=== PATIENT | female | born 1965 | race Two or more races ===

== ENCOUNTER 2021-05-27 10:14 | Inpatient (IN) | payer OTHER ==
[2021-05-27] MEDS ORDERED: SODIUM CHLORIDE 0.9% 1,000 ML IV STA (10:37)
[2021-05-27] MEDS ORDERED: MORPHINE SULFATE 4 MG/ML SYRINGE IV STA (10:37)
[2021-05-27 11:29] LABS: Basophils # (A) 0.1 k/uL (0-0.2); Basophils % (A) 1 %; Eosinophils % (A) 0 %; HGB 16.4 gm/dL (11.4-16.0); Lymphocytes # (A) 1.2 k/uL (1.0-4.8); Lymphocytes % (A) 16 %; MCH 32.8 pg (25.0-35.0); MCHC 33.5 g/dL (31.0-37.0); MCV 97.9 fL (80.0-100.0); Mean Platelet Volume 6.5; Monocytes # (A) 0.4 k/uL (0-1.0); Monocytes % (A) 5 %; Neutrophils # (A) 5.5 k/uL (1.3-7.7); Neutrophils % (A) 76 %; Platelet Count 254 k/uL (150-450); RDW 12.9 % (11.5-15.5); WBC 7.2 k/uL (3.8-10.6)
[2021-05-27 11:34] LABS: Partial Thromboplastin Time 23.8 sec (22.0-30.0); Prothrombin Time 10.7 sec (9.0-12.0)
[2021-05-27 11:36] LABS: ALT 22 U/L (4-34); AST 27 U/L (14-36); African American GFR (CKD) >90 (>60 ml/min/1.73 sqM); Albumin 5.3 g/dL (3.5-5.0); Alkaline Phosphatase 84 U/L (38-126); Amylase 107 U/L (30-110); Anion Gap 13 mmol/L; Blood Urea Nitrogen 12 mg/dL (7-17); Calcium 10.4 mg/dL (8.4-10.2); Carbon Dioxide 24 mmol/L (22-30); Chloride 95 mmol/L (98-107); Glucose 82 mg/dL (74-99); Lipase 89 U/L (23-300); Non-African American GFR(CKD) >90 (>60 ml/min/1.73 sqM); Potassium 3.8 mmol/L (3.5-5.1); Sodium 132 mmol/L (137-145); Total Bilirubin 1.2 mg/dL (0.2-1.3); Total Protein 8.1 g/dL (6.3-8.2)
[2021-05-27 11:53] LABS: Appearance,Urine Clear (Clear); Bacteria,Urine Rare /hpf; Bilirubin,Urine Negative (Negative); Blood,Urine Small (Negative); Color,Urine Light Yellow; Glucose,Urine (UA) Negative (Negative); Ketones,Urine 3+ (Negative); Leukocyte Esterase,Urine Negative (Negative); Mucus,Urine Rare /hpf; Nitrite,Urine Negative (Negative); Protein,Urine Negative (Negative); RBC,Urine 2 /hpf (0-5); Specific Gravity,Urine 1.009 (1.001-1.035); Urobilinogen,Urine <2.0 mg/dL (<2.0); WBC,Urine 2 /hpf (0-5)
--- NOTE | 2021-05-27 12:16 | ED ---
General Adult HPI - General Chief complaint: Abdominal Pain Stated complaint: abd pain Time Seen by Provider: 05/27/21 10:22 Source: patient, RN notes reviewed, old records reviewed Mode of arrival: ambulatory Limitations: no limitations - History of Present Illness Initial comments: 55-year-old female presenting for evaluation of lower abdominal pain. This been ongoing for several weeks. She states she has had abdominal pain in the past this was related to pancreatitis and this was many years ago. She's been seen 3 times at outside facilities and reports that they have not found any acute abnormality in that she has been discharged home. She she was recommended to come to the emergency department today by her primary care physician. She de nies fever. She has had some nausea without significant vomiting. The pain is bilateral lower quadrants. No dysuria or hematuria. - Related Data Home Medications Medication Instructions Recorded Confirmed Rosuvastatin [Crestor] 20 mg PO DAILY 05/27/21 05/27/21 Allergies Allergy/AdvReac Type Severity Reaction Status Date / Time acetaminophen [From Tylenol] Allergy Rash/Hives Verified 05/27/21 10:46 Penicillins Allergy hives/GRISELDA Verified 05/27/21 10:46 Review of Systems ROS Statement: Those systems with pertinent positive or pertinent negative responses have been documented in the HPI. ROS Other: All systems not noted in ROS Statement are negative. Past Medical History Past Medical History: No Reported History History of Any Multi-Drug Resistant Organisms: None Reported Past Surgical History: Cholecystectomy Additional Past Surgical History / Comment(s): Back Past Psychological History: No Psychological Hx Reported Smoking Status: Former smoker Past Alcohol Use History: None Reported Past Drug Use History: Marijuana General Exam Limitations: no limitations General appearance: alert, in no apparent distress Head exam: Present: atraumatic, normocephalic Eye exam: Present: normal appearance, PERRL ENT exam: Present: normal exam Neck exam: Present: normal inspection. Absent: tenderness, meningismus Respiratory exam: Present: normal lung sounds bilaterally. Absent: respiratory distress, wheezes Cardiovascular Exam: Present: regular rate, normal rhythm GI/Abdominal exam: Present: soft. Absent: distended, tenderness, guarding Extremities exam: Present: normal inspection, normal capillary refill. Absent: pedal edema Neurological exam: Present: alert, oriented X3, CN II-XII intact. Absent: motor sensory deficit Psychiatric exam: Present: anxious Skin exam: Present: warm, dry, intact. Absent: cyanosis, diaphoretic Course Vital Signs 05/27/21 10:15 Temperature 97.6 F Pulse Rate 85 Respiratory 24 Rate Blood Pressure 142/81 O2 Sat by Pulse 97 Oximetry Medical Decision Making - Medical Decision Making 55-year-old female presents for reevaluation of lower abdominal pain. Pain is severe. History is limited but she has been seen at 3 other emergency d epartments and has had workup. These records are requested. She hasn't lower abdominal tenderness bilaterally. Vital signs are stable. She has relatively normal labs including normal white blood cell count stable hemoglobin. CT is performed which does show possibility of some colitis. No skull other significant acute findings to account for the patient's pain. She receives multiple doses of medication the emergency department and still has significant pain and nausea. She will be admitted for further evaluation treatment, symptom control. Gastroenterology placed on consult and they have been notified of consult. - Lab Data Result diagrams: 05/27/21 10:42 05/27/21 10:42 Lab Results 05/27/21 05/27/21 05/27/21 Range/Units 10:42 10:42 10:42 WBC 7.2 (3.8-10.6) k/uL RBC 5.00 (3.80-5.40) m/uL Hgb 16.4 H (11.4-16.0) gm/dL Hct 49.0 H (34.0-46.0) % MCV 97.9 (80.0-100.0) fL MCH 32.8 (25.0-35.0) pg MCHC 33.5 (31.0-37.0) g/dL RDW 12.9 (11.5-15.5) % Plt Count 254 (150-450) k/uL MPV 6.5 Neutrophils % 76 % Lymphocytes % 16 % Monocytes % 5 % Eosinophils % 0 % Basophils % 1 % Neutrophils # 5.5 (1.3-7.7) k/uL Lymphocytes # 1.2 (1.0-4.8) k/uL Monocytes # 0.4 (0-1.0) k/uL Eosinophils # 0.0 (0-0.7) k/uL Basophils # 0.1 (0-0.2) k/uL PT 10.7 (9.0-12.0) sec INR 1.0 (<1.2) APTT 23.8 (22.0-30.0) sec Sodium (137-145) mmol/L Potassium (3.5-5.1) mmol/L Chloride (98-107) mmol/L Carbon Dioxide (22-30) mmol/L Anion Gap mmol/L BUN (7-17) mg/dL Creatinine (0.52-1.04) mg/dL Est GFR (CKD-EPI)AfAm (>60 ml/min/1.73 sqM) Est GFR (CKD-EPI)NonAf (>60 ml/min/1.73 sqM) Glucose (74-99) mg/dL Plasma Lactic Acid Gamaliel (0.7-2.0) mmol/L Calcium (8.4-10.2) mg/dL Total Bilirubin (0.2-1.3) mg/dL AST (14-36) U/L ALT (4-34) U/L Alkaline Phosphatase (38-126) U/L Total Protein (6.3-8.2) g/dL Albumin (3.5-5.0) g/dL Amylase (30-110) U/L Lipase (23-300) U/L Urine Color Light Yellow Urine Appearance Clear (Clear) Urine pH 6.0 (5.0-8.0) Ur Specific [place] 1.009 (1.001-1.035) Urine Protein Negative (Negative) Urine Glucose (UA) Negative (Negative) Urine Ketones 3+ H (Negative) Urine Blood Small H (Negative) Urine Nitrite Negative (Negative) Urine Bilirubin Negative (Negative) Urine Urobilinogen <2.0 (<2.0) mg/dL Ur Leukocyte Esterase Negative (Negative) Urine RBC 2 (0-5) /hpf Urine WBC 2 (0-5) /hpf Urine Bacteria Rare H (None) /hpf Urine Mucus Rare H (None) /hpf 05/27/21 05/27/21 Range/Units 10:42 10:42 WBC (3.8-10.6) k/uL RBC (3.80-5.40) m/uL Hgb (11.4-16.0) gm/dL Hct (34.0-46.0) % MCV (80.0-100.0) fL MCH (25.0-35.0) pg MCHC (31.0-37.0) g/dL RDW (11.5-15.5) % Plt Count (150-450) k/uL MPV Neutrophils % % Lymphocytes % % Monocytes % % Eosinophils % % Basophils % % Neutrophils # (1.3-7.7) k/uL Lymphocytes # (1.0-4.8) k/uL Monocytes # (0-1.0) k/uL Eosinophils # (0-0.7) k/uL Basophils # (0-0.2) k/uL PT (9.0-12.0) sec INR (<1.2) APTT (22.0-30.0) sec Sodium 132 L (137-145) mmol/L Potassium 3.8 (3.5-5.1) mmol/L Chloride 95 L (98-107) mmol/L Carbon Dioxide 24 (22-30) mmol/L Anion Gap 13 mmol/L BUN 12 (7-17) mg/dL Creatinine 0.71 (0.52-1.04) mg/dL Est GFR (CKD-EPI)AfAm >90 (>60 ml/min/1.73 sqM) Est GFR (CKD-EPI)NonAf >90 (>60 ml/min/1.73 sqM) Glucose 82 (74-99) mg/dL Plasma Lactic Acid Gamaliel 1.0 (0.7-2.0) mmol/L Calcium 10.4 H (8.4-10.2) mg/dL Total Bilirubin 1.2 (0.2-1.3) mg/dL AST 27 (14-36) U/L ALT 22 (4-34) U/L Alkaline Phosphatase 84 (38-126) U/L Total Protein 8.1 (6.3-8.2) g/dL Albumin 5.3 H (3.5-5.0) g/dL Amylase 107 (30-110) U/L Lipase 89 (23-300) U/L Urine Color Urine Appearance (Clear) Urine pH (5.0-8.0) Ur Specific [place] (1.001-1.035) Urine Protein (Negative) Urine Glucose (UA) (Negative) Urine Ketones (Negative) Urine Blood (Negative) Urine Nitrite (Negative) Urine Bilirubin (Negative) Urine Urobilinogen (<2.0) mg/dL Ur Leukocyte Esterase (Negative) Urine RBC (0-5) /hpf Urine WBC (0-5) /hpf Urine Bacteria (None) /hpf Urine Mucus (None) /hpf Disposition Clinical Impression: Abdominal pain, Intractable abdominal pain Disposition: ADMITTED IP TO THIS HOSP Condition: Stable Is patient prescribed a controlled substance at d/c from ED?: No Referrals: Sanya Lopez MD [Primary Care Provider] - 1-2 days Decision to Admit Reason: Admit from EC Decision Date: 05/27/21 Decision Time: 13:26
--- NOTE | 2021-05-27 12:16 | CT ---
EXAMINATION TYPE: CT abdomen pelvis w con DATE OF EXAM: 05/27/2021 COMPARISON: None HISTORY: LEFT SIDE ABD PAIN X3 WEEKS, CT DLP: 402.7 mGycm Automated exposure control for dose reduction was used. TECHNIQUE: Helical acquisition of images from the lung bases through the pelvis have been completed. CONTRAST: Performed without Oral Contrast and with IV Contrast, patient injected with 90 mL of Isovue 300. FINDINGS: LUNG BASES: No significant abnormality is appreciated. AORTA: No significant abnormality is appreciated. LIVER/GB: Dilated intra and extrahepatic biliary ducts could be due to postcholecystectomy change. PANCREAS: No significant abnormality is seen. SPLEEN: No significant abnormality is seen. ADRENALS: No significant abnormality is seen. KIDNEYS: No significant abnormality is seen. REPRODUCTIVE ORGANS: Right ovarian cyst measures 2.2 cm, uterus to be within normal limits BOWEL: Question some colonic wall thickening, axial image 54 and 55 at the rectosigmoid, findings co uld be due to lack of distention. Fluid-filled loops of small bowel are present. FREE AIR: No Free Air visible. ASCITES: None visible. PELVIC ADENOPATHY: None visualized. RETROPERITONEAL ADENOPATHY: No Retroperitoneal Adenopathy visible. URINARY BLADDER: No significant abnormality is seen. OSSEOUS STRUCTURES: Postop change, Berger nhi is present, there is an underlying scoliosis, conor fact is present due to patient's mental nhi. Degenerative disc changes present at L4-5, there is disc height loss, vacuum phenomenon, spurring, posterior disc bulge. Facet arthropathy changes present in the lower lumbar spine IMPRESSION: DIFFICULT TO EXCLUDE COLITIS, ENTERITIS. POSTOP CHANGE. ADDITIONAL FINDINGS ABOVE.
[2021-05-27] MEDS ORDERED: HYDROmorphone 1 MG/ML 1 ML SYRINGE IVP STA (12:41)
[2021-05-27] MEDS ORDERED: MORPHINE SULFATE 4 MG/ML SYRINGE IV PRN (13:16)
[2021-05-27] MEDS ORDERED: HYDROmorphone 1 MG/ML 1 ML SYRINGE IVP PRN (13:16)
[2021-05-27] MEDS ORDERED: NALOXONE 0.4 MG/ML 1 ML VIAL IV PRN (13:16)
[2021-05-27] MEDS ORDERED: ONDANSETRON 4 MG/2 ML VIAL IVP STA (13:16)
[2021-05-27] MEDS ORDERED: KETOROLAC 15 MG/ML 1 ML VIAL IVP STA (13:16)
[2021-05-27] MEDS ORDERED: HYDROmorphone 0.5 MG/0.5 ML SYRINGE IVP PRN (13:16)
[2021-05-27] MEDS: SODIUM CHLORIDE 0.9% 1,000 ML IV SCH (14:23)
--- NOTE | 2021-05-27 15:22 | P.CONS ---
History of Present Illness - Reason for Consult Consult date: 05/27/21 intractable abdominal pain Requesting physician: Stone Austin - Chief Complaint abdominal pain - History of Present Illness Subjective 55-year-old female who presented to the emergency room with complaints of razor like pulsating pain in her lower abdomen that she states is constant but gets worse at times. She states the pain wraps around her back and it is numb along her back and stomach and down her legs. States the pain shoots down her legs. She has a history of scoliosis. She states she has been seen in [facility] times recently. Patient has no reported past medical history. She has a history of cholecystectomy. She does state that she did have a history of pancreatitis any years ago which she believes they stated was related to alcohol however she states that she was never a big drinker and only drinks maybe a sixpack a week. She had a CT of the abdomen that showed questionable colonic wall thickening at the rectosigmoid, could be due to lack of distention. Fluid-filled loops of small bowel are present. Difficult to exclude colitis, enteritis. Postop change. Patient states bowel movements have been somewhat irregular as she is not eaten anything in the last 3 weeks. She states that she did have some constipation was given some MiraLAX and she did have a couple bowel movements after that. She denies any fevers or chills. Review of Systems REVIEW OF SYSTEMS: CARDIOPULMONARY: No chest pain or shortness of breath. Gastrointestinal: Low abdominal pain/pelvic pain which she states it feels like razor blades and pulsating, with numbness and wraps around her back.. No nausea or vomiting. No hematemesis, coffee-ground emesis. No rectal bleeding, or melena. GENITOURINARY: No dysuria or hematuria. MUSCULOSKELETAL: Reports normal range of motion. Pain in lower back and shootin g down her legs. Reports as a numbness feeling and burning sensation along her abdomen and back. SKIN: No rashes. No jaundice. ENDOCRINE: No chills, fevers. No excessive weight gain or loss. No polydipsia or polyuria. PSYCHIATRIC: Unremarkable. NEUROLOGY: No change in mental status. Denies dizziness, headache. ENT: Vision unremarkable. CONSTITUTIONAL: No recent weight loss. No fever, chills, night sweats. Past Medical History Past Medical History: No Reported History History of Any Multi-Drug Resistant Organisms: None Reported Past Surgical History: Cholecystectomy Additional Past Surgical History / Comment(s): Back Past Psychological History: No Psychological Hx Reported Smoking Status: Former smoker Past Alcohol Use History: None Reported Past Drug Use History: Marijuana Medications and Allergies Home Medications Medication Instructions Recorded Confirmed Type Rosuvastatin [Crestor] 20 mg PO DAILY 05/27/21 05/27/21 History Allergies Allergy/AdvReac Type Severity Reaction Status Date / Time acetaminophen [From Tylenol] Allergy Rash/Hives Verified 05/27/21 10:46 Penicillins Allergy hives/GRISELDA Verified 05/27/21 10:46 Physical Exam Vitals: Vital Signs Temp Pulse Resp BP Pulse Ox 05/27/21 10:15 97.6 F 85 24 142/81 97 Intake and Output 05/26/21 05/27/21 05/27/21 22:59 06:59 14:59 Other: Weight 40.823 kg General appearance: The patient is alert, oriented, appears in no acute distress. HET: Head is normocephalic and atraumatic. Conjunctiva pink. Sclera anicteric. Neck: Supple without lymphadenopathy. Trachea midline. Heart: S1 S2. Regular rate and rhythm. Lungs: Clear to auscultation. Abdomen: Soft, thin, tenderness in the lower abdomen/pelvic region, nondistended with bowel sounds. No guarding or rigidity. Skin: No rashes. No jaundice. Extremities: Normal skin color and turgor. No pedal edema. Neurological: No focal deficits. Alert and oriented x3. Results CBC & Chem 7: 05/27/21 10:42 05/27/21 10:42 Labs: Abnormal Lab Results - Last 24 Hours (Table) 05/27/21 05/27/21 05/27/21 Range/Units 10:42 10:42 10:42 Hgb 16.4 H (11.4-16.0) gm/dL Hct 49.0 H (34.0-46.0) % Sodium 132 L (137-145) mmol/L Chloride 95 L (98-107) mmol/L Calcium 10.4 H (8.4-10.2) mg/dL Albumin 5.3 H (3.5-5.0) g/dL Urine Ketones 3+ H (Negative) Urine Blood Small H (Negative) Urine Bacteria Rare H (None) /hpf Urine Mucus Rare H (None) /hpf CT scan - abdomen: report reviewed (Difficult to exclude colitis, enteritis, postop change. Berger hni present underlying scoliosis. Degenerative disc changes present L4 to 5, there is disc height loss, vacuum phenomenon, spurring, posterior disc bulge. Facet arthropathic the changes present in the lower lumbar spine.) Assessment and Plan (1) Abdominal pain Narrative/Plan: Gastroenterology was asked to see this 55-year-old female who had presented with complaints of abdominal pain. Patient states she has this lower abdominal pelvic pain that is like razor blades that are pulsating and wrapping around to her back which then goes down her leg. She also describes it as a burning sensation and numbness feeling. She denies any nausea or vomiting related to the pain. She states that she has not had much of an appetite and hasn't ate much in the last 2-3 weeks due to the pain. She has been seen at 3 other emergency rooms in [place] in [place] and has been sent home without any p ain medication. Patient has no previous significant past medical history other than a history of pancreatitis several years ago and likely related to alcohol she states. This pain does not appear to be gastrointestinal in nature. Pain is more likely to be related to her back, spasms, possible underlying etiology as seen in the CT report. No plans at this time for any further GI workup. This was discussed with primary care medicine team, recommend follow-up on back pain Current Visit: Yes Status: Acute Code(s): R10.9 - UNSPECIFIED ABDOMINAL PAIN SNOMED Code(s): 24958362 (2) Degenerative disc disease, lumbar Current Visit: Yes Status: Acute Code(s): M51.36 - OTHER INTERVERTEBRAL DISC DEGENERATION, LUMBAR REGION SNOMED Code(s): 18065613 Plan: 1. Continue symptomatic and supportive care 2. No plans on any endoscopic evaluation 3. Recommend orthopedic back surgeon to evaluate patient Thank you for this consultation, we will continue to follow. Dr. Milind Schaffer I agree with the dictator's note, documented as a scribe by Bessy Gong.
[2021-05-27] MEDS ORDERED: NAPROXEN 250 MG TAB PO STA (15:31)
[2021-05-27] MEDS ORDERED: methylPREDNISolone SOD SUCCI 125 MG/2 ML VIAL IV STA (15:38)
[2021-05-27] MEDS ORDERED: LACTULOSE 20 GM/30 ML CUP PO PRN (15:40)
[2021-05-27] MEDS ORDERED: MELATONIN 3 MG TABLET PO PRN (15:40)
[2021-05-27] MEDS ORDERED: CALCIUM CARBONATE 500 MG CHEWABLE PO PRN (15:40)
[2021-05-27] MEDS: BACLOFEN 10 MG TAB PO SCH ×2 (15:43→19:56)
[2021-05-27] MEDS: ACETAMINOPHEN TAB 325 MG TAB PO SCH ×2 (15:43→22:24)
[2021-05-27] MEDS: ENOXAPARIN 40 MG/0.4 ML SYRINGE SQ SCH (16:23)
--- NOTE | 2021-05-27 16:57 | XR ---
EXAMINATION TYPE: XR lumbosacral spine min 4V DATE OF EXAM: 05/27/2021 COMPARISON: NONE HISTORY: Back pain TECHNIQUE: 5 views FINDINGS: There is paraspinal nhi stabilizing the thoracic spine. The nhi extends down to L3 level. T here is a mild lumbar levoscoliosis. There is degenerative disc space narrowing and vacuum disc at L4 -5 and L5-S1. There is no compression fracture. Sacroiliac joints are intact. There is clips from cho lecystectomy. There is pulmonary hyperinflation and flattening of the diaphragm. IMPRESSION: Previous surgery. Spondylotic changes in the lower lumbar spine. No fracture seen.
--- NOTE | 2021-05-27 16:58 | CT ---
EXAMINATION TYPE: CT lumbar spine wo con DATE OF EXAM: 05/27/2021 COMPARISON: None HISTORY: 55-year-old female acute on chronic low back pain with radiculopathy TECHNIQUE: Contiguous axial scanning of the lumbar spine without IV contrast. Coronal and sagittal re constructions performed. CT DLP: 363.3 mGycm Automated exposure control for dose reduction was used. FINDINGS: There is a single vertical stabilization elizabeth which comes down from the thoracic spine on the left wit h a laminar hook at the midline L3. Lateral osseous fusion changes are demonstrated along with variab le laminectomies visualized lower thoracic and upper to mid lumbar spine. There is bony encasement of the vertical stabilization elizabeth noted. There is levoconvex scoliosis with prominent rightward truncal shift. Associated severe degenerative disc disease specially towards the right at L4-L5 along with advanced hypertrophic facet arthropathy mid to lower lumbar spine. At L4-L5, there is some ligamentum flavum thickening with facet arthropathy and disc bulge. Changes r esult in mild overall spinal canal stenosis. Moderate right neuroforaminal stenosis. At L5-S1, smaller disc bulge and ligamentum flavum thickening. Hypertrophic facet arthropathy. Change s result in mild bilateral neuroforaminal stenosis. Abdomen and pelvis reported separately. IMPRESSION: 1. SINGLE VERTICAL STABILIZATION ELIZABETH WHICH COMES DOWN FROM THE THORACIC SPINE ON THE LEFT WITH A LAMI JESSIE HOOK AT THE MIDLINE L3 LEVEL. THERE IS LATERAL OSSEOUS FUSION CHANGES ALONG WITH VARIABLE LAMINEC TOMIES UTILIZED IN THE LOWER THORACIC AND UPPER TO MID LUMBAR SPINE. BONY ENCASEMENT OF THE VISUALIZE D PORTION OF THE VERTICAL STABILIZATION RODS. 2. LEVOCONVEX SCOLIOSIS BELOW THE THORACOLUMBAR FUSION AND ASSOCIATED SEVERE DEGENERATIVE DISC DISEAS E L4-L5. 3. ADDITIONAL HYPERTROPHIC FACET ARTHROPATHY MID TO LOWER LUMBAR SPINE. 4. CHANGES INCLUDING BULGING DISC AND LIGAMENTUM FLAVUM THICKENING RESULT IN MILD OVERALL SPINAL BETH L STENOSIS AT L4-L5 WITH MODERATE RIGHT NEUROFORAMINAL STENOSIS. 5. MILD BILATERAL NEUROFORAMINAL STENOSIS AT L5-S1. 6. ABDOMEN AND PELVIS REPORTED SEPARATELY.
--- NOTE | 2021-05-27 18:01 | P.HPIM ---
History of Present Illness H&P Date: 05/27/21 Chief Complaint: Back and abdominal pain This is a very pleasant 55-year-old patient of Dr. Lopez. Patient at the age of 12 for severe scoliosis had surgery done in [place] and also placed what she described from her thoracic to lumbar spine. Over the last 2 years she's had pain on and off. And has seen different physicians. For her back. Through her family doctor. She has been prescribed pain medications. For last 2 weeks patient denies having increasing pain in the lower back and also patient describes in the abdominal wall. She finds the abdominal wall to be very sensitive to touch. She was having a bowel movement every day up to 2 weeks ago. Now she is not eating. Because of pain and has constipation. No nausea vomiting. She also feeling some numbness in the legs. Also having some more trouble walking. Having increasing trouble rolling about in bed. Back pain is much worse with movements. She's been to a local ER apparently to 3 times-4 lower abdominal pain. She does seem that the abdominal wall is sensitive to touch. She is also describing shooting pain from the lower back up the spine. She is quite a bit of discomfort. Because of concerns for side effects including constipation and has been avoiding pain medications. Except for marijuana Review of systems: GEN.: Tired EYES: None HEENT: None NECK: None RESPIRATORY: None CARDIOVASCULAR: None GASTROINTESTINAL: As above GENITOURINARY: None MUSCULOSKELETAL: As above LYMPHATICS: None HEMATOLOGICAL: None PSYCHIATRY: Anxious NEUROLOGICAL: As above Past medical history to include: Pancreatitis, chronic back pain Social history: Lives with her boyfriend. Patient been smoking for about 35 years. Not significantly cutback. Does use marijuana for pain. Family history: Reviewed, noncontributory to presentation Physical examination: VITAL SIGNS: 97.6, 85, 24, 142/81, 97% room air GENERAL: BMI 15.9, laying in bed, awake, and comfortable. EYES: Pupils equal. Conjunctiva normal. HEENT: External appearance of nose and ears normal, oral cavity grossly normal. NECK: JVD not raised; masses not palpable. HEART: First and second heart sounds are normal; no edema. LUNGS: Respiratory rate normal; clear to auscultation. ABDOMEN: Soft, nontender, liver spleen not palpable, no masses palpable. PSYCH: [Alert and oriented x3; mood and affect anxious. MUSCULOSKELETAL:No Clubbing/cyanosis;muscles-grossly intact. Bilateral plantars and knee reflexes are equivocal. Difficult leg raising up to 30 on both the sides. Surgical scar on the back, with evidence of scoliosis NEUROLOGICAL: Cranial nerves grossly intact; no facial asymmetry, power and sensation grossly intact. Decreased sensation bilaterally in the lower abdomen and upper thigh. Hyperaesthesia, and both lower quadrants abdomen LYMPHATICS: No lymph nodes palpable in the axilla and neck INVESTIGATIONS, reviewed in the clinical context: White count 7.2 hemoglobin 16.4 platelets 254 sodium 132 potassium 3.8 BUN 12 crit and 0.71 calcium 10.4 UA ketone 3+ blood small Coronavirus [PCR]: Not detected Computed tomography scan abdomen and pelvis with contrast: Fluid-filled loops of small bowel present. Lumbar spine x-ray film personally reviewed by me: Shows prominent bowel, significant scoliotic findings. Osteopenia. Disc space narrowing. 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 Patient's had pain on and off now progressively getting worse. Especially as L4-L5 and other disc space narrowing. Causing radicular pain bilaterally and hypersensitivity to skin of lower abdomen. And referred pain to her lower extremity. For currently we'll give patient naproxen, baclofen, Tylenol, steroids. K pad. Consultation to orthopedic spinal be done. -Moderate protein calorie malnutrition with a BMI of 15.9 from decreased oral intake Dietitian. Add ensure -Ileus or small bowel from pain and decreased activity. Add Metamucil. 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 Continue patient be started on naproxen baclofen, steroids, scheduled Tylenol. K pad. Activity as tolerated. Bedside commode. Subcu Lovenox. Consult orthopedics. Repeat labs in the morning.. Past Medical History Past Medical History: No Reported History Additional Past Medical History / Comment(s): Pancreatitis, chronic back pain. History of Any Multi-Drug Resistant Organisms: None Reported Past Surgical History: Cholecystectomy Additional Past Surgical History / Comment(s): Back Past Anesthesia/Blood Transfusion Reactions: No Reported Reaction Additional Past Anesthesia/Blood Transfusion Reaction / Comment(s): Pt received blood with back surgery without reaction. Past Psychological History: No Psychological Hx Reported Smoking Status: Former smoker Past Alcohol Use History: None Reported Past Drug Use History: Marijuana - Past Family History Father History Unknown: Yes Mother Family Medical History: No Reported History Additional Family Medical History / Comment(s): Mother is healthy Medications and Allergies Home Medications Medication Instructions Recorded Confirmed Type Rosuvastatin [Crestor] 20 mg PO DAILY 05/27/21 05/27/21 History Allergies Allergy/AdvReac Type Severity Reaction Status Date / Time acetaminophen [From Tylenol] Allergy Rash/Hives Verified 05/27/21 10:46 Penicillins Allergy hives/GRISELDA Verified 05/27/21 10:46 Physical Exam Vitals: Vital Signs Temp Pulse Pulse Resp BP BP Pulse Ox 05/27/21 15:22 98.0 F 71 16 156/86 100 05/27/21 14:10 86 20 135/77 98 05/27/21 10:15 97.6 F 85 24 142/81 97 Intake and Output 05/27/21 05/27/21 05/27/21 06:59 14:59 22:59 Intake Total 145 Balance 145 Intake: Oral 145 Other: Weight 40.823 kg 40.823 kg Results CBC & Chem 7: 05/27/21 10:42 05/27/21 10:42 Labs: Abnormal Lab Results - Last 24 Hours (Table) 05/27/21 05/27/21 05/27/21 Range/Units 10:42 10:42 10:42 Hgb 16.4 H (11.4-16.0) gm/dL Hct 49.0 H (34.0-46.0) % Sodium 132 L (137-145) mmol/L Chloride 95 L (98-107) mmol/L Calcium 10.4 H (8.4-10.2) mg/dL Albumin 5.3 H (3.5-5.0) g/dL Urine Ketones 3+ H (Negative) Urine Blood Small H (Negative) Urine Bacteria Rare H (None) /hpf Urine Mucus Rare H (None) /hpf Thrombosis Risk Factor Assmnt - Choose All That Apply Any of the Below Risk Factors Present?: Yes Each Factor Represents 1 point: Age 41-60 years Other Risk Factors: No Other congenital or acquired thrombophilia - If yes, enter type in comment: No Thrombosis Risk Factor Assessment Total Risk Factor Score: 1 Thrombosis Risk Factor Assessment Level: Low Risk
[2021-05-27] MEDS: ONDANSETRON 4 MG/2 ML VIAL IVP PRN (18:19)
[2021-05-27] MEDS: ALPRAZolam 0.25 MG TAB PO PRN (18:22)
[2021-05-27] MEDS: NICOTINE 7MG/24HR PATCH TRANSDERM SCH (18:25)
[2021-05-27] MEDS: NAPROXEN 250 MG TAB PO SCH (19:56)
[2021-05-27] MEDS: predniSONE 20 MG TAB PO SCH (19:56)
[2021-05-27] MEDS: FAMOTIDINE 20 MG TAB PO SCH (19:56)
[2021-05-27] MEDS: KETOROLAC 30 MG/ML 1 ML VIAL IVP PRN (22:25)
[2021-05-28] MEDS: SODIUM CHLORIDE 0.9% 1,000 ML IV SCH ×3 (02:22→21:39)
[2021-05-28] MEDS: ONDANSETRON 4 MG/2 ML VIAL IVP PRN ×2 (04:03→09:42)
[2021-05-28] MEDS: ALPRAZolam 0.25 MG TAB PO PRN ×3 (04:03→21:48)
[2021-05-28] MEDS: KETOROLAC 30 MG/ML 1 ML VIAL IVP PRN ×4 (04:04→21:43)
[2021-05-28] MEDS: ACETAMINOPHEN TAB 325 MG TAB PO SCH ×3 (06:23→17:55)
[2021-05-28 07:46] LABS: Basophils % (A) 0 %; Eosinophils % (A) 0 %; HCT 44.7 % (34.0-46.0); HGB 14.3 gm/dL (11.4-16.0); Lymphocytes # (A) 0.6 k/uL (1.0-4.8); Lymphocytes % (A) 11 %; MCH 31.7 pg (25.0-35.0); MCHC 32.1 g/dL (31.0-37.0); MCV 98.7 fL (80.0-100.0); Mean Platelet Volume 6.8; Monocytes # (A) 0.2 k/uL (0-1.0); Monocytes % (A) 4 %; Neutrophils # (A) 4.6 k/uL (1.3-7.7); Neutrophils % (A) 84 %; Platelet Count 226 k/uL (150-450); RBC 4.53 m/uL (3.80-5.40); RDW 12.9 % (11.5-15.5); WBC 5.5 k/uL (3.8-10.6)
[2021-05-28 07:51] LABS: ALT 18 U/L (4-34); AST 23 U/L (14-36); African American GFR (CKD) >90 (>60 ml/min/1.73 sqM); Albumin 4.2 g/dL (3.5-5.0); Albumin/Globulin Ratio 1.8; Alkaline Phosphatase 65 U/L (38-126); Anion Gap 11 mmol/L; Blood Urea Nitrogen 17 mg/dL (7-17); Calcium 9.4 mg/dL (8.4-10.2); Carbon Dioxide 18 mmol/L (22-30); Chloride 103 mmol/L (98-107); Globulin 2.3 g/dL; Glucose 104 mg/dL (74-99); Non-African American GFR(CKD) >90 (>60 ml/min/1.73 sqM); Sodium 132 mmol/L (137-145); Total Protein 6.5 g/dL (6.3-8.2)
[2021-05-28] MEDS: NAPROXEN 250 MG TAB PO SCH ×3 (09:56→21:39)
[2021-05-28] MEDS: NICOTINE 7MG/24HR PATCH TRANSDERM SCH (09:57)
[2021-05-28] MEDS: BACLOFEN 10 MG TAB PO SCH ×4 (10:05→21:38)
[2021-05-28] MEDS: FAMOTIDINE 20 MG TAB PO SCH ×2 (10:05→21:38)
[2021-05-28 11:31] VITALS: BMI 15.9
--- NOTE | 2021-05-28 11:32 | P.CNOR ---
History of Present Illness - [facility] Consult date: 05/28/21 Consult reason: other History of present illness: Patient is a 55-year-old female is seen and examined today at bedside. Her primary complaint is that of abdominal numbness and pain. She says that she has been having severe numbness and pain at her abdomen for the past 2 weeks. She says she has been unable to eat for the past 2 weeks and whenever she tries she throws it up. She says that she has chills regularly over the past 2 weeks as well. She is complaining of significant numbness around her abdomen and hypersensitivity with feelings of what she calls 90s and stabbing at her abdomen very frequently. She has the pain worsens is very sharp when it worsens. She says the pain is primarily around her abdomen bilaterally and around her back bilaterally at her lower trunk. She says the pain also shoots down her legs equally on both legs globally over her legs. She denies any weakness. She denies any changes in bowel bladder function. She denies any trauma to her back recently. She admits to history of scoliosis and history of surgery on her back when she was 12 years old. She says she has not had problems with her back. And she does not take any medications or do any treatment for her back in general. She says 2 years ago she was having some back pain and was told she had arthritis a nd was sent to water therapy which did not help her. She does not take any regular medications for her back other than occasional [id number] medication. She denies any weakness in her lower extremities. She denies any pain or numbness or tingling in her upper extremity is. She says the pain at her abdomen and her lower back also shoots up her back toward her neck. She denies any neck pain currently. She denies any chest pain or shortness of breath. She denies any recent travel. Review of Systems Her pain started about 2 weeks ago without incident. She said she started having numbness and decreased sensation but sharp hypersensitivity around her abdomen bilaterally at her lower quadrants. She says the pain radiates around toward her lower back as well. She feels as though it starts in her abdomen works towards her back. She says the pain occasionally shoots down her legs equally bilaterally and globally. The pain does not change with position. She says that she has not been eating. She feels very hypersensitive at her legs with any light touch and over her abdomen and lower back with any light touch severe hypersensitivity. She says she has been vomiting whenever she tries to eat. She denies any diarrhea. She denies fevers but says she has chills on a regular basis and clammy type feeling over her skin globally. Past Medical History Past Medical History: No Reported History Additional Past Medical History / Comment(s): Pancreatitis, chronic back pain. History of scoliosis with surgical fusion from L3 into her thoracic spine over 30 years ago History of Any Multi-Drug Resistant Organisms: None Reported Past Surgical History: Cholecystectomy Additional Past Surgical History / Comment(s): Back Past Anesthesia/Blood Transfusion Reactions: No Reported Reaction Additional Past Anesthesia/Blood Transfusion Reaction / Comm: Pt received blood with back surgery without reaction. Past Psychological History: No Psychological Hx Reported Smoking Status: Former smoker Past Alcohol Use History: None Reported Past Drug Use History: Marijuana - Past Family History Father History Unknown: Yes Mother Family Medical History: No Reported History Additional Family Medical History / Comment(s): Mother is healthy Medications and Allergies Home Medications Medication Instructions Recorded Confirmed Type Rosuvastatin [Crestor] 20 mg PO DAILY 05/27/21 05/27/21 History Allergies Allergy/AdvReac Type Severity Reaction Status Date / Time acetaminophen [From Tylenol] Allergy Rash/Hives Verified 05/27/21 10:46 Penicillins Allergy hives/GRISELDA Verified 05/27/21 10:46 Physical Examination Osteopathic Statement: *. No significant issues noted on an osteopathic structural exam other than those noted in the History and Physical/Consult. - L Spine: dermatomal strength & reflexes bilateral Strength: hip flexion: 5/5 (At her back she has well-healed incision. There is no erythema there is no swelling. She is nontender over her back at her thoracic spine. At her lower back she has severe hypersensitivity diffusely across her lower back at the midline and at the bilateral flanks.) Strength: hip extension: 5/5 (She has severe hypersensitivity and pain with light touch over her back at her lower back and overhead her abdomen or bilateral lower quadrants and around the midline. There is no distention. Her abdomen is soft. At her legs she also has some hypersensitivity around her anterior thighs. She has) Strength: knee flexion: 5/5 (She has 5 over 5 strength with bilateral lower extremity is with hip flexion knee extension dorsal flexion plantarflexion and EHL. There is no pain with internal/external rotation in her lower extremities. She has no hyperreflexia in her lower extremity. No clonus.) Strength: knee extension: 5/5 (Good strength maintain the bilateral lower extremity. Upper extremities have full active and passive range motion with good strength. Neck is nontender palpation range of motion. No neural tension signs.) Results - Labs Labs: Abnormal Lab Results - Last 24 Hours (Table) 05/27/21 05/27/21 05/27/21 Range/Units 10:42 10:42 10:42 Hgb 16.4 H (11.4-16.0) gm/dL Hct 49.0 H (34.0-46.0) % Lymphocytes # (1.0-4.8) k/uL Sodium 132 L (137-145) mmol/L Chloride 95 L (98-107) mmol/L Carbon Dioxide (22-30) mmol/L Glucose (74-99) mg/dL Calcium 10.4 H (8.4-10.2) mg/dL Albumin 5.3 H (3.5-5.0) g/dL Urine Ketones 3+ H (Negative) Urine Blood Small H (Negative) Urine Bacteria Rare H (None) /hpf Urine Mucus Rare H (None) /hpf 05/28/21 05/28/21 Range/Units 06:51 06:51 Hgb (11.4-16.0) gm/dL Hct (34.0-46.0) % Lymphocytes # 0.6 L (1.0-4.8) k/uL Sodium 132 L (137-145) mmol/L Chloride (98-107) mmol/L Carbon Dioxide 18 L (22-30) mmol/L Glucose 104 H (74-99) mg/dL Calcium (8.4-10.2) mg/dL Albumin (3.5-5.0) g/dL Urine Ketones (Negative) Urine Blood (Negative) Urine Bacteria (None) /hpf Urine Mucus (None) /hpf H & H 05/27/21 05/28/21 Range/Units 10:42 06:51 Hgb 16.4 H 14.3 (11.4-16.0) gm/dL Hct 49.0 H 44.7 (34.0-46.0) % Coagulation 05/27/21 Range/Units 10:42 INR 1.0 (<1.2) Result Diagrams: 05/28/21 06:51 05/28/21 06:51 - Diagnostic results CT Scan - lumbar: report reviewed (The report is reviewed. I agree with prior fusion down to L3. There is severe disc degeneration and disc height loss L4 5. With some foraminal stenosis. The fusion appears stable), image reviewed (Computed tomography scan of the lumbar spine is reviewed which shows a prior Berger nhi with fusion down to L3 and into the thoracic spine. I cannot visualize the top of the nhi on the scan. It appears to be solidly fused down to L3. 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 She has history of scoliosis with prior fusion from her thoracic spine down to L3. This appears to be solid without any evidence of instability or change. She does have significant disc degeneration L4 5 with significant disc height loss. The changes at L4 5 do not correlate well with her symptoms around her abdomen or her hyperesthesia. Her symptoms do not follow a specific radicular pattern or distribution. However she is having significant dysesthesia essentially from just above her umbilicus with hyperesthesia at area with any light palpation. She could have some sort of inflammatory issue or spinal irritation and I think that further imaging is warranted. With her history and her complex presentation I think an MRI of her cervical thoracic and lumbar spine could be of value to determine if there is any acute changes. She's not having any weakness or motor deficit in her lower extremities and I think it is okay for her to mobilize. I think that the MRI needs to be of her entire spinal column of her cervical thoracic and lumbar and we should do with contrast as she has had significant prior procedures as well. The patient has hyperesthesia and could have some benefit with neuromodulation with medication. We'll start her on gabapentin and see if she is able tolerate this and see if it help with some of her symptoms. This does not follow specific radicular pattern from L4 5 degeneration. It is difficult to determine the nature of her symptoms and further imaging is necessary with continued workup. With the paresthesias and numbness I think that evaluation with neurology would be of benefit as well. We will consult Dr. Jenkins with neurology. We'll continue to follow along with you. Time with Patient: Greater than 30
[2021-05-28] MEDS: predniSONE 20 MG TAB PO SCH ×2 (11:51→21:38)
[2021-05-28] MEDS: GABAPENTIN 300 MG CAP PO SCH ×2 (11:51→21:39)
--- NOTE | 2021-05-28 13:17 | XR ---
EXAMINATION TYPE: XR thoracic spine 3 views DATE OF EXAM: 05/28/2021 COMPARISON: NONE HISTORY: 55-year-old female history of thoracic surgery, abdominal pain, numbness FINDINGS: Single vertical Berger nhi extends from T4 down through T3 with proximal and distal laminar hooks . There is a concurrent dextroconvex scoliosis centered at T9-T10 with Salgado angle of 56 degrees. Allo wing for the spinal curvature, no obvious vertebral compression collapse or malalignment in the visua lized thoracic spine and upper to mid lumbar spine. Incidentally, there is some focal nodularity projecting along the posterior lower chest on the latera l view. IMPRESSION: 1. Single vertical Berger nhi for down through T3 with proximal and distal laminar hooks. 2. Dextroconvex scoliosis with a Salgado angle of 56 degrees. 3. Incidentally, focal nodularity projecting along the posterior lower chest on the lateral view. Fin dings may represent summation artifact. Recommend CT of the chest to exclude a suspicious pulmonary n odule.
--- NOTE | 2021-05-28 14:40 | P.CNNES ---
History of Present Illness Consult date: 05/28/21 Requesting physician: Hamilton Sheldon Reason for Consult: lower trunk numbness and pain History of Present Illness: This is a 55-year-old right-handed woman with history of chronic low back pain, severe scoliosis s/p surgery (at [facility]), pancreatitis, who presented to the emergency department on 05/27/2021 because of abdominal pain. Neurology is consulted for lower trunk pain and paresthesia. It seems to the patient has been having severe numbness and pain in her abdomen for the past 2 weeks and unable to eat as a result the his feels nauseous when she eats. She said the pain, numbness and tingling is from the umbilical belly region all the way to groin region on both side and felt it was all the sudden. She has been having loss of apetite as result, feeling nauseous. As result of loss of appetite has been constipated but had a bowel movement yesterday and denies any urinary problems. She feels she is also having lower abdomen pain that she feels is shooting down the bilateral toes. She denies any focal weakness of legs. Denies any trauma to the back. She denies of any visual disturbance, upper extremity weakness, numbness, tingling. She denies difficulty getting her words out. She denies history of stroke or multiple sclerosis. She smoke cigarettes about 1Pack per week and is cutting down. She drinks very social and denies illicit drug use. Per the patient at the age of [age] years old, she had severe scoliosis and had surgery at [facility] in her thoracic and lumbar region. Some of the workup in the hospital consisted of: Most recent vital signs is a blood pressure of 182/99, heart rate of 86, respiratory of 18, temperature of 98.1 Fahrenheit oral pulse ox of 98% room air. Since the patient is been our facility patient has been afebrile. Most recent CBC with differential is unremarkable Chemistry panel is the sodium is 132 and initial calcium 7.4 but repeated is 9.4. The otherwise rest of the chemistry panel is unremarkable. AST and ALT is within normal limits. Amylase and lipase is within normal limits Urinalysis is negative for urinary tract infection. Turner virus PCR was not detected. PT, PTT and INR are within normal limits CT lumbar spine is reported as single vertical stabilization nhi which comes down from the thoracic spine on the left with a lateral pelvic at the midline L3 level. There is lateral osseous fusion changes along with variable laminectomies utilized in the lower thoracic and upper to mid lumbar spine. Bone effacement of the visualized portion of the vertical stabilization rods.Levoconvex scoliosis below the thoracolumbar fusion and associated severe degenerative disc disease L4 to L5. Additional hypertrophic facet arthropathy mid to lower lumbar spine. Changes include the bulging disc and ligamentum flavum thickening result in the mild overall spinal canal stenosis at L4-L5 with moderate right neuroforaminal stenosis. Mild bilateral neuroforaminal stenosis at L5-S1. Thoracic spine x-ray is reported as single vertical Berger nhi down through the T3 with proximal and distal laminal looks. Add dextroconvex scoliosis with a Salgado angle of 56. Incidentally focal nodular projection along the posterior lower chest of the lateral view. Finding may represent summation artifact. Recommend CT of the chest to exclude the suspicious pulmonary nodule. CT of the abdomen and pelvis is reported as difficult to exclude colitis, enteritis. Postop changes. Additional finding above. GI team is consulted and they seen the patient and no intervention from their perspective and they recommended orthopedic to be consulted which they have. Review of Systems Review of system: The 12 point system was reviewed and apparent positive and negative per HPI. Past Medical History Past Medical History: No Reported History Additional Past Medical History / Comment(s): Pancreatitis, chronic back pain. History of scoliosis with surgical fusion from L3 into her thoracic spine over 30 years ago History of Any Multi-Drug Resistant Organisms: None Reported Past Surgical History: Cholecystectomy Additional Past Surgical History / Comment(s): Back Past Anesthesia/Blood Transfusion Reactions: No Reported Reaction Additional Past Anesthesia/Blood Transfusion Reaction / Comment(s): Pt received blood with back surgery without reaction. Past Psychological History: No Psychological Hx Reported Smoking Status: Former smoker Past Alcohol Use History: None Reported Past Drug Use History: Marijuana - Past Family History Father History Unknown: Yes Mother Family Medical History: No Reported History Additional Family Medical History / Comment(s): Mother is healthy Medications and Allergies Home Medications Medication Instructions Recorded Confirmed Type Rosuvastatin [Crestor] 20 mg PO DAILY 05/27/21 05/27/21 History Allergies Allergy/AdvReac Type Severity Reaction Status Date / Time acetaminophen [From Tylenol] Allergy Rash/Hives Verified 05/27/21 10:46 Penicillins Allergy hives/GRISELDA Verified 05/27/21 10:46 Physical Examination - Vital Signs Vital Signs: Vital Signs Temp Pulse Pulse Pulse Resp BP BP 05/28/21 07:00 98.1 F 86 18 182/99 05/28/21 00:31 97.8 F 58 L 16 165/74 05/27/21 19:27 98.5 F 60 18 163/88 05/27/21 15:22 98.0 F 71 16 156/86 05/27/21 14:10 86 20 135/77 Pulse Ox 05/28/21 07:00 98 05/28/21 00:31 98 05/27/21 19:27 97 05/27/21 15:22 100 05/27/21 14:10 98 Intake and Output 05/27/21 05/28/21 05/28/21 22:59 06:59 14:59 Intake Total 145 Balance 145 Intake: Oral 145 Other: # Voids 0 3 1 # Bowel Movements 1 # Emeses 1 Weight 40.823 kg 40.823 kg GENERAL: The patient is a lying in bed and is in moderate to severe acute distress. She appears cachectic CHEST: The heart rate is regular rate rhythm. No murmurs to auscultation. LUNG: Clear to auscultation bilaterally no wheezing noted throughout. Not labored breathing. ABDOMEN/GI: Bowel sounds present in all 4 quadrants. No tenderness to palpation throughout. NEUROLOGICAL: I had a female roller leveler operator during examination. Higher mental function: The patient is awake, alert, oriented to self, place and time. Patient is following commands. No aphasia and no neglect. Cranial nerves: The pupils are round, equal and reactive to light and acc ommodation. Visual krishnan are full to confrontation throughout. Extraocular movement is intact no nystagmus is noted. Facial sensation is normal to touch throughout. The facial strength is normal throughout. Hearing is normal bilaterally to hand rub. Tongue is midline and moved [id number] without any difficulty. No dysarthria is noted. Shoulder shrug is normal bilaterally. Motor: Gait: Is limited because of pain but is able to stand up on her own without assistance. The strength is 5 over 5 throughout upper and lower she is lifting above gravity without focality (individual muscles is limited because of pain). Normal tone and decrease bulk throughout since patient is cachectic. Cerebellum: Normal finger to nose bilaterally. Sensation: Sensation was inconsistent but appears decrease from T9-L1/L2 dermatome anteriorly and posterior stated it was normal. Reflexes (right/left): 1-2+ throughout uppers while lowers are 2+ throughout. Plantars are downgoing bilaterally. Results - Laboratory Findings CBC and BMP: 05/28/21 06:51 05/28/21 06:51 Abnormal Lab Findings: Abnormal Labs 05/27/21 05/27/21 05/27/21 10:42 10:42 10:42 Hgb 16.4 H Hct 49.0 H Lymphocytes # Sodium 132 L Chloride 95 L Carbon Dioxide Glucose Calcium 10.4 H Albumin 5.3 H Urine Ketones 3+ H Urine Blood Small H Urine Bacteria Rare H Urine Mucus Rare H 05/28/21 05/28/21 06:51 06:51 Hgb Hct Lymphocytes # 0.6 L Sodium 132 L Chloride Carbon Dioxide 18 L Glucose 104 H Calcium Albumin Urine Ketones Urine Blood Urine Bacteria Urine Mucus Assessment and Plan Assessment: Abdominal pain with numbness/paresthesia and and dysesthesia. Numbness and Paresthesia seems decrease from T9-L1/L2: Unknown etiology. Normal strength and reflexes of lowers. No complaints of uppers. Reports of nausea and vomitting likely due above History of severe Scoliosos s/p fusion over thoracic-lumbar at age [age] years old Lumbar spondylosis L4-L5 Tobacco use Plan: I spoke with the Dr. Sheldon (Orthopedic) and that discussed the case with him and the I agree to pursue with MRI of the lumbar thoracic and cervical with and without. I ordered hemoglobin A1c, vitamin B12, folate. Orthopedic team started the patient on gabapentin 300 mg a tablet twice a day. We'll see if the patient tolerates the medication. Every 4 hours neuro checks PT and OT is consulted Orthopedic surgery team is on board GI team is on board. We'll defer the rest of the medical measure to [facility] Team. The plan is discussed with the patient and her nurse. Thank you for the consultation. Bryce Jenkins M.D. Neuro-hospitalist Time with Patient: Greater than 30
--- NOTE | 2021-05-28 15:55 | MR ---
EXAMINATION TYPE: MR cspine/tspine/lspine wo con DATE OF EXAM: 05/28/2021 COMPARISON: Thoracic spine x-ray earlier today HISTORY: Dysesthesia trunk and bilateral lower extremities. TECHNIQUE: Multiplanar, multisequence imaging of the cervical thoracic and lumbar spine are attempted without IV contrast. FINDINGS: There is marked dextroconvex scoliosis centered mid to lower thoracic spine despite attempt ed long segment Berger nhi correction noted on plain films. There is marked artifact from large metallic nhi making evaluation essentially nondiagnostic for eval uating cord edema. There is vacuum disc phenomenon with moderate to severe disc space narrowing L4-L5 level incidentally noted. IMPRESSION: As above.
--- NOTE | 2021-05-28 16:10 | P.PN ---
Subjective Progress Note Date: 05/28/21 Principal diagnosis: Abdominal/back pain 55-year-old female who came into the emergency department yesterday with complaints of lower abdominal pain and back pain that radiates down into her legs and is causing numbness. Patient had been seen at to previous hospitals and states she was discharged home. Patient's symptoms have been more consistent with musculoskeletal/back problems. This was also seen per CT appendectomy abdomen and pelvis. Orthopedics has been consulted to further evaluate patient. Today she states pain is about the same she is also having some nausea. Objective - Vital Signs Vital signs: Vital Signs Temp 98.1 F 05/28/21 07:00 Pulse 86 05/28/21 07:00 Resp 18 05/28/21 07:00 BP 182/99 05/28/21 07:00 Pulse Ox 98 05/28/21 07:00 Intake & Output 05/27/21 05/28/21 05/28/21 18:59 06:59 18:59 Intake Total 145 Balance 145 Weight 40.823 kg 40.823 kg Intake: Oral 145 Other: # Voids 3 1 # Bowel Movements 1 # Emeses 1 - Exam General appearance: The patient is alert, oriented, appears in no acute distress. HET: Head is normocephalic and atraumatic. Conjunctiva pink. Sclera anicteric. Neck: Supple without lymphadenopathy. Abdomen: Soft, lower abdominal tenderness, nondistended with bowel sounds. No guarding or rigidity. Extremities: Normal skin color and turgor. No pedal edema Skin: No rashes, no jaundice Neurological: No focal deficits. Alert and oriented -3. - Labs CBC & Chem 7: 05/28/21 06:51 05/28/21 06:51 Labs: Abnormal Lab Results - Last 24 Hours (Table) 05/27/21 05/27/21 05/28/21 Range/Units 10:42 10:42 06:51 Lymphocytes # 0.6 L (1.0-4.8) k/uL Sodium 132 L (137-145) mmol/L Chloride 95 L (98-107) mmol/L Carbon Dioxide (22-30) mmol/L Glucose (74-99) mg/dL Calcium 10.4 H (8.4-10.2) mg/dL Albumin 5.3 H (3.5-5.0) g/dL Urine Ketones 3+ H (Negative) Urine Blood Small H (Negative) Urine Bacteria Rare H (None) /hpf Urine Mucus Rare H (None) /hpf 05/28/21 Range/Units 06:51 Lymphocytes # (1.0-4.8) k/uL Sodium 132 L (137-145) mmol/L Chloride (98-107) mmol/L Carbon Dioxide 18 L (22-30) mmol/L Glucose 104 H (74-99) mg/dL Calcium (8.4-10.2) mg/dL Albumin (3.5-5.0) g/dL Urine Ketones (Negative) Urine Blood (Negative) Urine Bacteria (None) /hpf Urine Mucus (None) /hpf Assessment and Plan (1) Abdominal pain Narrative/Plan: Gastroenterology was asked to see this 55-year-old female who had presented with complaints of abdominal pain. Patient states she has this lower abdominal pelvic pain that is like razor blades that are pulsating and wrapping around to her back which then goes down her leg. She also describes it as a burning sensation and numbness feeling. She denies any nausea or vomiting related to the pain. She states that she has not had much of an appetite and hasn't ate much in the last 2-3 weeks due to the pain. She has been seen at 3 other emergency rooms in [facility] and has been sent home without any pain medication. Patient has no previous significant past medical history other than a history of pancreatitis several years ago and likely related to alcohol she states. This pain does not appear to be gastrointestinal in nature. Pain is more likely to be related to her back, spasms, possible underlying etiology as seen in the CT report. No plans at this time for any further GI workup. This was discussed with primary care medicine team, recommend follow-up on back pain Current Visit: Yes Status: Acute Code(s): R10.9 - UNSPECIFIED ABDOMINAL PAIN SNOMED Code(s): 76543609 (2) Degenerative disc disease, lumbar Current Visit: Yes Status: Acute Code(s): M51.36 - OTHER INTERVERTEBRAL DISC DEGENERATION, LUMBAR REGION SNOMED Code(s): 26421843 Plan: 1. Continue symptomatic and supportive care 2. No plans on any endoscopic evaluation 3. New with recommendations from orthopedic surgeon as well as neurology Thank you for this consultation, we will sign off at this time. Dr. Milind Schaffer I agree with the dictator's note, documented as a scribe by Bessy Gong.
--- NOTE | 2021-05-28 16:19 | P.PN ---
Progress Note - Text Progress Note Date: 05/28/21 Chief Complaint: Back and abdominal pain This is a very pleasant 55-year-old patient of Dr. Lopez. Patient at the age of 12 for severe scoliosis had surgery done in [place] and also placed what she described from her thoracic to lumbar spine. Over the last 2 years she's had pain on and off. And has seen different physicians. For her back. Through her family doctor. She has been prescribed pain medications. For last 2 weeks patient denies having increasing pain in the lower back and also patient describes in the abdominal wall. She finds the abdominal wall to be very sensitive to touch. She was having a bowel movement every day up to 2 weeks ago. Now she is not eating. Because of pain and has constipation. No nausea vomiting. She also feeling some numbness in the legs. Also having some more trouble walking. Having increasing trouble rolling about in bed. Back pain is much worse with movements. She's been to a local ER apparently to 3 times-4 lower abdominal pain. She does seem that the abdominal wall is sensitive to touch. She is also describing shooting pain from the lower back up the spine. She is quite a bit of discomfort. Because of concerns for side effects including constipation and has been avoiding pain medications. Except for marijuana May 28: Patient having significant pain in the lower back, hyperesthesia in the lower abdominal wall and also having erratic or pain down the legs. Spoke to Dr. Hoskins from orthopedics. He is consulting neurology and an MRA of the spine was ordered. Latter was done, essentially nondiagnostic Review of systems: Was done for constitutional, cardiovascular, GI, pulmonary. relevant finding as above Active Medications Acetaminophen (Acetaminophen Tab 325 Mg Tab) 650 mg PO Q6HR [facility] Last Admin: 05/28/21 11:54 Dose: Not Given Documented by: Alprazolam (Alprazolam 0.25 Mg Tab) 0.25 mg PO Q6HR PRN PRN Reason: Anxiety Last Admin: 05/28/21 14:30 Dose: 0.25 mg Documented by: Baclofen (Baclofen 10 Mg Tab) 5 mg PO QID [facility] Last Admin: 05/28/21 14:29 Dose: 5 mg Documented by: Calcium Carbonate/Glycine (Calcium Carbonate 500 Mg Chewable) 1,000 mg PO Q4HR PRN PRN Reason: Dyspepsia Enoxaparin Sodium (Enoxaparin 40 Mg/0.4 Ml Syringe) 40 mg SQ DAILY [facility] Last Admin: 05/27/21 16:23 Dose: 40 mg Documented by: Famotidine (Famotidine 20 Mg Tab) 20 mg PO BID [facility] Last Admin: 05/28/21 10:05 Dose: 20 mg Documented by: Gabapentin (Gabapentin 300 Mg Cap) 300 mg PO BID [facility] Last Admin: 05/28/21 11:51 Dose: 300 mg Documented by: Sodium Chloride (Saline 0.9%) 1,000 mls @ 125 mls/hr IV .Q8H [facility] Last Admin: 05/28/21 10:04 Dose: 125 mls/hr Documented by: Ketorolac Tromethamine (Ketorolac 30 Mg/Ml 1 Ml Vial) 15 mg IVP Q6HR PRN PRN Reason: Moderate Pain Stop: 05/30/21 13:17 Last Admin: 05/28/21 09:50 Dose: 15 mg Documented by: Lactulose (Lactulose 20 Gm/30 Ml Cup) 20 gm PO DAILY PRN PRN Reason: Constipation Melatonin (Melatonin 3 Mg Tablet) 3 mg PO HS PRN PRN Reason: Insomnia Naloxone HCl (Naloxone 0.4 Mg/Ml 1 Ml Vial) 0.2 mg IV Q2M PRN PRN Reason: Opioid Reversal Naproxen (Naproxen 250 Mg Tab) 250 mg PO TID [facility] Last Admin: 05/28/21 09:56 Dose: Not Given Documented by: Nicotine (Nicotine 7mg/24hr Patch) 1 patch TRANSDERM DAILY [facility] Last Admin: 05/28/21 09:57 Dose: Not Given Documented by: Ondansetron HCl (Ondansetron 4 Mg/2 Ml Vial) 4 mg IVP Q6HR PRN PRN Reason: Nausea And Vomiting Last Admin: 05/28/21 09:42 Dose: 4 mg Documented by: Prednisone (Prednisone 20 Mg Tab) 20 mg PO BID [facility] Last Admin: 05/28/21 11:51 Dose: 20 mg Documented by: Past medical history to include: Pancreatitis, chronic back pain Social history: Lives with her boyfriend. Patient been smoking for about 35 years. Not significantly cutback. Does use marijuana for pain. Family history: Reviewed, noncontributory to presentation Physical examination: VITAL SIGNS: 98.4, 81, 17, 186/93 with pain GENERAL: BMI 15.9, laying in bed, awake, uncomfortable. EYES: Pupils equal. Conjunctiva normal. HEENT: External appearance of nose and ears normal, oral cavity grossly normal. NECK: JVD not raised; masses not palpable. HEART: First and second heart sounds are normal; no edema. LUNGS: Respiratory rate normal; clear to auscultation. ABDOMEN: Soft, nontender, liver spleen not palpable, no masses palpable. PSYCH: [Alert and oriented x3; mood and affect anxious. MUSCULOSKELETAL:No Clubbing/cyanosis;muscles-grossly intact. Bilateral plantars and knee reflexes are equivocal. Difficult leg raising up to 30 on both the sides. Surgical scar on the back, with evidence of scoliosis NEUROLOGICAL: Cranial nerves grossly intact; no facial asymmetry, power and sensation grossly intact. Decreased sensation bilaterally in the lower abdomen and upper thigh. Hyperaesthesia, and both lower quadrants abdomen INVESTIGATIONS, reviewed in the clinical context: Cervical spine/thoracic/lumbar spine MRI: Nondiagnostic. Severe disc space narrowing at L4-L5 May 28: White count 5.5, hemoglobin 14.3 platelets 226 sodium 132 potassium 4 creatinine 0.69 White count 7.2 hemoglobin 16.4 platelets 254 sodium 132 potassium 3.8 BUN 12 crit and 0.71 calcium 10.4 UA ketone 3+ blood small Coronavirus [PCR]: Not detected Computed tomography scan abdomen and pelvis with contrast: Fluid-filled loops of small bowel present. Lumbar spine x-ray film personally reviewed by me: Shows prominent bowel, si gnificant scoliotic findings. Osteopenia. Disc space narrowing. 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 Patient's had pain on and off now progressively getting worse. Especially as L4-L5 and other disc space narrowing. Causing radicular pain bilaterally and hypersensitivity to skin of lower abdomen. And referred pain to her lower extremity. For currently we'll give patient naproxen, baclofen, Tylenol, steroids. K pad. Follow with orthopedic spine. Neurontin added by orthopedics. -Moderate protein calorie malnutrition with a BMI of 15.9 from decreased oral intake Dietitian. ensure -Ileus or small bowel from pain and decreased activity. Metamucil. 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 Baclofen. K pad. Follow with orthopedics and neurology.
[2021-05-28] MEDS: ENOXAPARIN 40 MG/0.4 ML SYRINGE SQ SCH (17:48)
[2021-05-28 21:30] LABS: Folate, Serum >20.00 ng/mL (4.40-31.00)
[2021-05-29] MEDS: ACETAMINOPHEN TAB 325 MG TAB PO SCH ×4 (00:50→18:06)
[2021-05-29] MEDS: SODIUM CHLORIDE 0.9% 1,000 ML IV SCH ×2 (03:03→16:23)
[2021-05-29] MEDS: KETOROLAC 30 MG/ML 1 ML VIAL IVP PRN ×2 (03:59→21:32)
[2021-05-29] MEDS: GABAPENTIN 300 MG CAP PO SCH ×2 (07:48→21:07)
[2021-05-29] MEDS: predniSONE 20 MG TAB PO SCH ×2 (07:48→21:07)
[2021-05-29] MEDS: NAPROXEN 250 MG TAB PO SCH ×3 (07:48→21:07)
[2021-05-29] MEDS: BACLOFEN 10 MG TAB PO SCH ×4 (07:49→21:07)
[2021-05-29] MEDS: FAMOTIDINE 20 MG TAB PO SCH ×2 (07:49→21:07)
[2021-05-29] MEDS: ENOXAPARIN 40 MG/0.4 ML SYRINGE SQ SCH ×2 (07:50→10:20)
[2021-05-29] MEDS: NICOTINE 7MG/24HR PATCH TRANSDERM SCH (07:51)
[2021-05-29] MEDS: ONDANSETRON 4 MG/2 ML VIAL IVP PRN ×2 (08:03→21:39)
[2021-05-29] MEDS: ALPRAZolam 0.25 MG TAB PO PRN (08:03)
--- NOTE | 2021-05-29 08:54 | P.PN ---
Progress Note - Text Progress Note Date: 05/29/21 Orthopedic spine: History of present illness: Patient is a very pleasant 55-year-old female who is seen and examined at the bedside for follow-up evaluation of her spine. She was seen and examined yesterday for further evaluation of abdominal pain radiating towards her back. She states at the bedside this morning she continues to have severe abdominal pain greater on the left than the right that radiates across the front of her abdomen and also towards her left flank. Today she denies any thoracolumbar pain. She was experiencing some numbness and tingling in the bilateral lower extremities. She states that since subsided. She denies any difficulty with her upper extremities bilaterally. She states her symptoms are focused specifically at her abdomen. She states her symptoms have been ongoing over the past 2-3 weeks without injury. She states she has difficulty eating due to her pain. She does feel her pain is exacerbated with eating and with movement. She states it is a stabbing sensation. Her symptoms appear to be controlled while lying in bed during examination but are exacerbated when moving in bed. She denies any upper extremity or lower extremity weakness bilaterally. She does have a history of previous fusion from T3-L3 performed at age 12. She states this was done in [place], [place] approximately 43 years ago. She states she has not had any difficulty with her spine since that time. She denies any in juries. She states she does not even like light palpation over her abdomen or left side as it significantly exacerbates her pain. She has been seen by gastroenterology, neurology, medicine. Prior to examination the bedside she has had MRI imaging of the cervical spine, thoracic spine, and lumbar spine performed. Gastroenterology is not currently planning for any further evaluation at this time. Physical exam: Patient is awake, alert, and oriented 3 Vital signs stable Good chest excursion with deep inspiration and expiration Patient will not allow me to palpate her abdomen or left flank/side area due to pain Examination of thoracic and lumbar spine reveals skin is intact with no abrasions, lacerations, or bruises; no erythema, purulence or signs of infection Evidence of a well-healed incision along the midline extending from the upper thoracic spine through the lumbar spine Today there is no pain with palpation over her thoracic spine or lumbar spine Dorsiflexion, plantarflexion, and extensor hallucis longus positive sustained bilaterally Increased abdominal pain with lifting her legs off the bed independently bilaterally Patient is able to perform full active range of motion of the bilateral lower extremities in bed but complains of increased abdominal pain while doing so Negative Lasegue's test bilaterally No signs or symptoms of DVT; no calf pain No pain with internal and external rotation of the hips bilaterally Neurovascularly intact Pertinent studies: MRI imaging of the cervical spine, thoracic spine, and lumbar spine taken on 05/28/2021: Report states there is marked artifact from large metallic nhi making evaluation essentially nondiagnostic for evaluating cord edema. However, we are able to visualized some of the lower thoracic spinal cord on sagittal imaging and we do not visualize any significant herniated nucleus pulposus or obvious canal stenosis at these levels. We do not visualize any obvious cord signal change at the lower thoracic spine. There are evidence of some degenerative changes at the cervical spine without obvious cord signal change. There are no axial imaging available. Assessment: Acute severe abdominal pain and hypersensitivity History of thoracolumbar fusion at T3-L3 performed approximately 43 years ago at the age of 12 History of scoliosis History of cholecystectomy L4-5 degenerative disc disease Reports increased nausea with eating Plan: 1. Patient has been discussed in detail with Dr. Noel Sheldon and we have reviewed her imaging together. MRI imaging of the cervical spine, thoracic spine, and lumbar spine was performed yesterday, 05/28/2021. MRI report states there is marked artifact from large metallic nhi making evaluation essentially nondiagnostic for evaluating cord edema. However, we are able to visualized some of the lower thoracic spinal cord on sagittal imaging and we do not visual ize any significant herniated nucleus pulposus or obvious canal stenosis at these levels. We do not visualize any obvious cord signal change at the lower thoracic spine. There are evidence of some degenerative changes at the cervical spine without obvious cord signal change. There are no axial imaging available. We will plan to contact radiology to see if they can put further images together from her MRI so that we may visualize axial views and would also ask that they are able to dictate what they are able to see at the lower thoracic spine and lower lumbar spine, specifically at the L4-5 level. Currently, we are not planning for any acute surgical intervention in regards to the patient's thoracic or lumbar spines. She was previously experiencing numbness and tingling in bilateral lower extremities which has subsided. She is not experiencing any significant weakness of bilateral lower extremities. She does not have any difficulties with her upper extremities. She denies any upper extremity weakness or radiculopathy. She was experiencing some hypersensitivity over her thoracic and lumbar spines which has also subsided. She does not currently have any pain with palpation over her thoracic or lumbar spines. She continues to have significant pain over her abdomen most significant on the left radiating towards the left side/flank and across the abdomen towards the right. This pain appears a better controlled at rest and is exacerbated when the patient moves in bed. Patient will not allow me to palpate her abdomen or left side due to significant pain. She states she has hypersensitivity in this area and her symptoms are significantly exacerbated with even light palpation. She states she does not like to have anything touching her skin. She also states her abdominal pain is exacerbated with eating. We did discuss that although we do not know the cause of her symptoms, it does not appear her symptoms are stemming specifically from or thoracic or lumbar spine. She does have degenerative changes at L4-5 below her fusion but even changes at this level would not correlate well with her severe abdominal pain. Patient states she does not feel this is a thoracic or spine cause either and states at the bedside she does not wish to have any surgical intervention at her thoracic or lumbar spines. She states she had her previous fusion at T3-L3 approximately 43 years ago at the age of 12 and has not had any significant difficulty with her back since that time. She does admit her current abdominal pain is acute and has been ongoing over the past 2-3 weeks without injury. We currently recommend further treatment and evaluation with other medical providers including medicine, neurology, and even possibly further workup with gastroenterology. If radiology is able to update the MRI report on her cervical, thoracic, and lumbar imaging taken yesterday, we will plan to review this. Currently, we are still not planning for acute surgical intervention at her spine. She may continue with medications as prescribed as needed for pain control. Plan of care is discussed in detail with Dr. Noel Sheldon and he agrees with this plan.
--- NOTE | 2021-05-29 11:38 | P.PN ---
Subjective Progress Note Date: 05/29/21 The patient is seen at bedside and feels about the same. Objective - Vital Signs Vital signs: Vital Signs Temp 98.3 F 05/29/21 07:00 Pulse 81 05/29/21 08:00 Resp 18 05/29/21 08:00 BP 179/96 05/29/21 07:00 Pulse Ox 97 05/29/21 07:00 Intake & Output 05/28/21 05/29/21 05/29/21 18:59 06:59 18:59 Weight 40.823 kg Other: # Voids 1 2 # Bowel Movements 1 # Emeses 1 - Exam GENERAL: The patient is a lying in bed and is in moderate to severe acute distress. She appears cachectic ABDOMEN/GI: Bowel sounds present in all 4 quadrants. No tenderness to palpation throughout. NEUROLOGICAL: I had a female manufacture specialist during examination. Higher mental function: The patient is awake, alert, oriented to self, place and time. Patient is following commands. No aphasia and no neglect. Cranial nerves: The pupils are round, equal and reactive to light and accommodation. Visual krishnan are full to confrontation throughout. Extraocular movement is intact no nystagmus is noted. Facial sensation is normal to touch throughout. The facial strength is normal throughout. Hearing is normal bilaterally to hand rub. Tongue is midline and moved [id number] without any difficulty. No dysarthria is noted. Shoulder shrug is normal bilaterally. Motor: Gait: Is limited because of pain but is able to stand up on her own without assistance. The strength is 5 over 5 throughout upper and lower she is lifting above gravity without focality (individual muscles is limited because of pain). Normal tone and decrease bulk throughout since patient is cachectic. Cerebellum: Normal finger to nose bilaterally. Sensation: Sensation was inconsistent but appears decrease from T9-L1/L2 dermatome anteriorly and posterior stated it was normal. Reflexes (right/left): 1-2+ throughout uppers while lowers are 2+ throughout. Plantars are downgoing bilaterally. WORK-UP: Chemistry panel is the sodium is 132 and initial calcium 7.4 but repeated is 9.4. The otherwise rest of the chemistry panel is unremarkable. AST and ALT is within normal limits. Amylase and lipase is within normal limits Urinalysis is negative for urinary tract infection. Turner virus PCR was not detected. Vitamin Vitamin B12: 542 Serum >20 HbA1c: 5.9 PT, PTT and INR are within normal limits CT lumbar spine is reported as single vertical stabilization nhi which comes down from the thoracic spine on the left with a lateral pelvic at the midline L3 level. There is lateral osseous fusion changes along with variable laminectomies utilized in the lower thoracic and upper to mid lumbar spine. Bone effacement of the visualized portion of the vertical stabilization rods.Levoconvex scoliosis below the thoracolumbar fusion and associated severe degenerative disc disease L4 to L5. Additional hypertrophic facet arthropathy mid to lower lumbar spine. Changes include the bulging disc and ligamentum flavum thickening result in the mild overall spinal canal stenosis at L4-L5 with moderate right neuroforaminal stenosis. Mild bilateral neuroforaminal stenosis at L5-S1. Thoracic spine x-ray is reported as single vertical Berger nhi down through the T3 with proximal and distal laminal looks. Add dextroconvex scoliosis with a Salgado angle of 56. Incidentally focal nodular projection along the posterior lower chest of the lateral view. Finding may represent summation artifact. Recommend CT of the chest to exclude the suspicious pulmonary nodule. CT of the abdomen and pelvis is reported as difficult to exclude colitis, enteritis. Postop changes. Additional finding above. MRI C-spine, Thoracic and Lumbar w/w/o: It is reported marked artifact from large metallic nhi marking evaluation essentially nondiagnostic for evaluating cord edema. There is vacuum disc phenomenon with moderate to severe disc space narrowing L4-L5 level incidentally noted. I personally reviewed and agree. - Labs CBC & Chem 7: 05/28/21 06:51 05/28/21 06:51 Assessment and Plan Assessment: * Abdominal pain with numbness/paresthesia and and dysesthesia. Numbness and Paresthesia seems decrease from T9-L1/L2: Unknown etiology. Normal strength and reflexes of lowers. No complaints of uppers. MRI C-spine/Thoracic/Lumbar is limited because of artifact. * Reports of nausea and vomitting likely due above * History of severe Scoliosos s/p fusion over thoracic-lumbar at age [age] years old * Lumbar spondylosis L4-L5 * Tobacco use Plan: Ordered CT myelogram of thoracic and lumbar. Orthopedic team started the patient on gabapentin 300 mg a tablet twice a day. We'll see if the patient tolerates the medication. Every 4 hours neuro checks PT and OT is consulted Orthopedic surgery team is on board GI team is on board. We'll defer the rest of the medical measure to [facility] Team. The plan is discussed with the patient and her nurse. Bryce Jenkins M.D. Neuro-hospitalist Time with Patient: Less than 30
[2021-05-29] MEDS ORDERED: HYDROmorphone 1 MG/ML 1 ML SYRINGE IVP STA (12:40)
[2021-05-29] MEDS ORDERED: cloNIDine HCL 0.1 MG TAB PO STA (12:40)
--- NOTE | 2021-05-29 13:30 | P.CN ---
Psychiatric Consult - . Consult date: 05/29/21 Consult:: 05/29/21 13:22 IDENTIFYING DATA: This patient is a 55-year-old female who currently lives with her mother and boyfriend. She has 2 daughters and is currently unemployed. REASON FOR REFERRAL: Psychiatry was consulted for "suicidal ideation" HISTORY OF PRESENT ILLNESS: The patient presented to the hospital on 05/27 for abdominal pain that single and on for weeks according to ER report. Patient apparently has chronic pancreatic pain. Neurology has been following patient along with orthopedics for her scoliosis. Consult to gastroenterology has been placed. Patient apparently has been complaining of significant pain on and off during her hospitalization. She apparently made remarks of suicidal ideations related to her pain as it was not being controlled according to Emr. Patient was put on a one-to-one sitter. Patient was seen at the bedside today and agreeable to speak to her either. She immediately claims that "I didn't mean that stuff when I said it". She states that she is feeling frustrated as she was not getting adequate pain control and "said it stupidly". She claims that she says impulsive things at times and doesn't mean it. She states that she is sorry and claims adamantly that she is not suicidal. She states that she cares for her elderly mother who has dementia and also her children and would never harm herself. She denies any access to guns or weapons. She states that she was in so much pain prior to coming in the hospital and claims that she was at [place] earlier in the gave her a "shot in the ER" and discharge her home. She states that she doesn't usually take pain medications. She states that she has never had this problem before and is unsure where the pain is coming from. She states that her sleep has been poor approximately 2 hours a night. She states that she does have some anxiety and mild depression at times. She was fairly directable and appropriately during conversation. She states that her appetite is fair. At this time patient denies any current suicidal or homical ideations, intent or plan. Patient denies any auditory, visual hallucinations and denies any paranoia or delusions. Patients admits to using marijuana daily approximately 1-3 joints a day. She states that she does so long cigarettes and occasional alcohol. She did describe times of irritability and frustration with her boyfriend. PAST PSYCHIATRIC HISTORY: Patient has a a history of [] Mild depression and anxiety. [Patient denies being on any psychiatric medications.] [Patient denies any previous psychiatric hospitalizations.] [Patient denies any psychiatric outpatient follow-up.] [Patient denies any history of suicide attempts in the past.] PAST MEDICAL HISTORY: [denies]. ALLERGIES: as per EMR. CHEMICAL DEPENDENCY HISTORY: as per HPI. FAMILY PSYCHIATRIC/SUBSTANCE USE HISTORY: [denies] SOCIAL HISTORY: Patient was born and raised in [facility]. She states that she completed up to 11th grade in school. 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 She states that she does not have any legal history. She has 2 daughters and is currently unemployed. She lives between her mother's house and her boyfriend's house. MENTAL STATUS EXAM: General Appearance: Patient appears to be thin, stated age is alert, directable, and cooperative. Patient appears to have [fair] hygiene and grooming wearing hospital gown with [fair] eye contact. Behavior: [Patient is calmly lying in bed without any agitated behavior.]She was apologetic. Speech: Patient's speech is fluent and nonpressured. Mood/Affect: Patient reports their mood is "[fine now]", affect is congruent Suicidality/Homicidality: Patient denies having any suicidal or homicidal ideation intent or plan. Perceptions: Patient denies any visual hallucinations [and denies any auditory hallucinations] Though content/process: There is no evidence of any delusional thought content and thought process is linear and goal-directed. Memory and concentration: AOX3, grossly intact for the purposes of this session. Can spell "WORLD" backwards Judgment and insight: fair IMPRESSIONS: Adjustment disorder with mixed depression and emotional conduct Generalized anxiety disorder Nicotine dependence Cannabis use disorder PLAN: -At this time patient DOES NOT meet criteria for inpatient psychiatric admission. -Would recommend the following medication changes/additions: Start Cymbalta 30 mg daily for mood/ anxiety/pain. Start trazodone 50 mg daily at bedtime for insomnia/mood. [-Can discontinue 1:1 sitter at this time as patient is not currently an imminent threat to themselves and contracts to safety.] [-deli worker to provide patient with outpatient mental health/psychiatry resources for appropriate follow up upon discharge] [-Nursery Supervisor spoke with patient about substance abuse and the harmful effects on medical and mental health, patient verbally understood and agreed.] -Communicated plan to patient's nurse -Will continue to follow along tomorrow -Please contact with any questions.
[2021-05-29] MEDS: DULoxetine HCL 30 MG CAPSULE.DR PO SCH (14:16)
--- NOTE | 2021-05-29 18:09 | CT ---
EXAMINATION TYPE: CT thoracic and lumbar myelogram, CT thoracic spine myelogram, prone DATE OF EXAM: 05/29/2021 COMPARISON: Correlation CT lumbar spine and abdomen pelvis 05/27/2021 HISTORY: 55-year-old female with paresthesias lower extremity and perineum and persistent abdominal p ain. Nausea and vomiting at home. TECHNIQUE: Contiguous axial scanning of the thoracic and lumbar spine performed after intrathecal adm inistration of Isovue M300 contrast material. Please refer to myelogram injection report of the same date. Coronal and sagittal reconstructions performed. Subsequent prone scanning of the upper half of the thoracic spine. CT DLP: 1523 (accession [id number]), 238 (accession [id number]) mGycm Automated exposure control for dose reduction was used. FINDINGS: Satisfactory intrathecal contrast opacification. There is known S-shaped scoliosis of the thoracolumbar spine. Single Mcgovern elizabeth with interlaminar hooks at T4 and L3. There is mild mature lateral osseous fusion up to the L2 level. Interbody fusion down to the T10 leve l. Above the fused level, T1-T2, there is hypertrophic facet arthropathy with grade 1 anterolisthesis. T here is ligamentum flavum thickening here. Mild narrowing of the spinal canal. Also within the visualized lower cervical spine, there is moderate to advanced disc/endplate degenera tive changes with disc osteophyte complexes resulting in mild spinal canal stenoses with variable abu tment of both the dorsal and ventral cord. Possible severe right neuroforaminal stenosis on the right at C5-C6. Variable moderate neural foramin al narrowing at other levels in the visualized lower cervical spine and also at T1-T2. Along the fused levels, there is no spinal canal stenosis or large disc herniation. Conus medullaris is seen to the L1-L2 level, normal. Below the fusion, there is hypertrophic facet arthropathy from L3 through S1 levels. This results in moderate neuroforaminal narrowing on the right at L4-L5 and [id number] at L5-S1 . On the left, this results in moderate neuroforaminal narrowing at L5-S1. At L4-L5, there is disc bulge and ligamentum flavum thickening causing mild narrowing of the spinal c anal. Incidentally, we note a very narrow distance between the aorta and the SMA of only 5 mm (normal 10 to 34 mm) at the level of the duodenum. There is secondary flattening of the third portion of the duode num. The patient's prior to 05/27/2021 CT showed distention of the proximal duodenum. When referencing the prior CT abdomen, the aorta mesenteric angle is 19 degrees on sagittal image 44 (normal 28-65 deg wesly). This results in mild narrowing of the left renal vein as well. IMPRESSION: 1. INCIDENTALLY, THERE IS A DECREASED AORTOMESENTERIC ANGLE AND DECREASED AORTOMESENTERIC DISTANCE (B ETWEEN THE AORTA AND SMA). THERE IS SECONDARY FLATTENING OF THE THIRD PORTION OF THE DUODENUM AND MIL D NARROWING OF THE LEFT RENAL VEIN. ON THE PATIENT'S 05/27/2021 CT, THERE WAS DISTENTION OF THE PROXIMA L DUODENUM. 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 CLINICALLY CORRELATE TO EXCLUDE THIS ENTITY AN ETIOLOGY FOR THE PATIENT'S ABDOMINAL PAIN. 2. MCGOVERN ELIZABETH FROM T4 DOWN THROUGH L3 WITH MATURE OSSEOUS FUSION UP TO T2. THERE IS ACCELERATED D EGENERATIVE CHANGE BOTH ABOVE AND BELOW THE FUSION WITH VARIABLE MILD SPINAL CANAL STENOSES IN THE LO WER CERVICAL SPINE AND AT T1-T2. DEGENERATIVE GRADE 1 ANTEROLISTHESIS AT T1-T2. 3. POSSIBLE SEVERE RIGHT NEUROFORAMINAL STENOSIS AT C5-C6. VARIABLE MODERATE NEUROFORAMINAL NARROWING AT OTHER LEVELS IN THE VISUALIZED LOWER CERVICAL SPINE AND ALSO AT T1-T2. 4. DISC BULGE AND LIGAMENTUM FLAVUM THICKENING AT L4-L5 MILDLY NARROWING THE SPINAL CANAL. HYPERTROPH IC FACET ARTHROPATHY LOWER LUMBAR SPINE. VARIABLE MODERATE NEURAL FORAMINAL NARROWING LOWER LOWER SPI NE OUTLINED ABOVE. 5. NO SIGNIFICANT SPINAL CANAL STENOSIS SEEN.
--- NOTE | 2021-05-29 18:14 | FL ---
EXAMINATION TYPE: FL myelogram 2 or more regions DATE OF EXAM: 05/29/2021 COMPARISON: Correlation radiograph to 05/27/2021 HISTORY: 55-year-old female back pain with paresthesias Total fluoroscopy time: 1 minute 1 second. Total images: T11. Informed consent was obtained and all the patient's questions were answered. A timeout was performed . S-shaped scoliosis. Berger nhi from T4 through L3. The patient and the patient's vital signs were monitored by qualified independent radiology personnel . The patient was placed prone on the fluoroscopy table and the L3-L4 level was localized and the skin was marked and was prepped and draped in the usual sterile fashion. Lidocaine was used for local anesthesia. Utilizing fluoroscopic guidance a 22-gauge 3.5" spinal needl e was placed through the skin and into the subarachnoid space. Clear CSF was visualized. Under fluoroscopic guidance all, 10 mL's of Isovue-M 300 was injected. The needle was removed, hemost asis obtained, and a bandage placed. The patient tolerated the procedure well and left the department in stable condition. CT myelography is to follow. IMPRESSION: Successful myelography thoracolumbar spine with injection at L3-L4, below the Berger nhi.
--- NOTE | 2021-05-29 18:45 | P.PN ---
Progress Note - Text Progress Note Date: 05/29/21 Chief Complaint: Back and abdominal pain This is a very pleasant 55-year-old patient of Dr. Lopez. Patient at the age of 12 for severe scoliosis had surgery done in [place] and also placed what she described from her thoracic to lumbar spine. Over the last 2 years she's had pain on and off. And has seen different physicians. For her back. Through her family doctor. She has been prescribed pain medications. For last 2 weeks patient denies having increasing pain in the lower back and also patient describes in the abdominal wall. She finds the abdominal wall to be very sensitive to touch. She was having a bowel movement every day up to 2 weeks ago. Now she is not eating. Because of pain and has constipation. No nausea vomiting. She also feeling some numbness in the legs. Also having some more trouble walking. Having increasing trouble rolling about in bed. Back pain is much worse with movements. She's been to a local ER apparently to 3 times-4 lower abdominal pain. She does seem that the abdominal wall is sensitive to touch. She is also describing shooting pain from the lower back up the spine. She is quite a bit of discomfort. Because of concerns for side effects including constipation and has been avoiding pain medications. Except for marijuana May 28: Patient having significant pain in the lower back, hyperesthesia in the lower abdominal wall and also having erratic or pain down the legs. Spoke to Dr. Hoskins from orthopedics. He is consulting neurology and an MRA of the spine was ordered. Latter was done, essentially nondiagnostic May 29: Continues to have significant pain. Neurology had ordered myelogram. Last night patient to express suicidal ideation. I ordered a sitter. Psychiatry consultation. The added Cymbalta and trazodone. Sitter discontinued. Discussed with patient. Further testing computed tomography scan ordered by orthopedic. Review of systems: Was done for constitutional, cardiovascular, GI, pulmonary. relevant finding as above Active Medications Acetaminophen (Acetaminophen Tab 325 Mg Tab) 650 mg PO Q6HR [id number] Last Admin: 05/29/21 18:06 Dose: Not Given Documented by: Alprazolam (Alprazolam 0.25 Mg Tab) 0.25 mg PO Q6HR PRN PRN Reason: Anxiety Last Admin: 05/29/21 08:03 Dose: 0.25 mg Documented by: Baclofen (Baclofen 10 Mg Tab) 5 mg PO QID [facility] Last Admin: 05/29/21 18:07 Dose: 5 mg Documented by: Calcium Carbonate/Glycine (Calcium Carbonate 500 Mg Chewable) 1,000 mg PO Q4HR PRN PRN Reason: Dyspepsia Duloxetine HCl (Duloxetine Hcl 30 Mg Capsule.Dr) 30 mg PO DAILY [facility] Last Admin: 05/29/21 14:16 Dose: 30 mg Documented by: Enoxaparin Sodium (Enoxaparin 40 Mg/0.4 Ml Syringe) 40 mg SQ DAILY [facility] Last Admin: 05/29/21 10:20 Dose: Not Given Documented by: Famotidine (Famotidine 20 Mg Tab) 20 mg PO BID [facility] Last Admin: 05/29/21 07:49 Dose: 20 mg Documented by: Gabapentin (Gabapentin 300 Mg Cap) 300 mg PO BID [facility] Last Admin: 05/29/21 07:48 Dose: 300 mg Documented by: Sodium Chloride (Saline 0.9%) 1,000 mls @ 125 mls/hr IV .Q8H [facility] Last Admin: 05/29/21 16:23 Dose: Not Given Documented by: Ketorolac Tromethamine (Ketorolac 30 Mg/Ml 1 Ml Vial) 15 mg IVP Q6HR PRN PRN Reason: Moderate Pain Stop: 05/30/21 13:17 Last Admin: 05/29/21 03:59 Dose: 15 mg Documented by: Lactulose (Lactulose 20 Gm/30 Ml Cup) 20 gm PO DAILY PRN PRN Reason: Constipation Melatonin (Melatonin 3 Mg Tablet) 3 mg PO HS PRN PRN Reason: Insomnia Naloxone HCl (Naloxone 0.4 Mg/Ml 1 Ml Vial) 0.2 mg IV Q2M PRN PRN Reason: Opioid Reversal Naproxen (Naproxen 250 Mg Tab) 250 mg PO TID [facility] Last Admin: 05/29/21 16:23 Dose: Not Given Documented by: Nicotine (Nicotine 7mg/24hr Patch) 1 patch TRANSDERM DAILY [facility] Last Admin: 05/29/21 07:51 Dose: Not Given Documented by: Ondansetron HCl (Ondansetron 4 Mg/2 Ml Vial) 4 mg IVP Q6HR PRN PRN Reason: Nausea And Vomiting Last Admin: 05/29/21 08:03 Dose: 4 mg Documented by: Prednisone (Prednisone 20 Mg Tab) 20 mg PO BID [facility] Last Admin: 05/29/21 07:48 Dose: 20 mg Documented by: Trazodone HCl (Trazodone Hcl 50 Mg Tab) 50 mg PO [facility] Past medical history to include: Pancreatitis, chronic back pain Social history: Lives with her boyfriend. Patient been smoking for about 35 years. Not significantly cutback. Does use marijuana for pain. Family history: Reviewed, noncontributory to presentation Physical examination: VITAL SIGNS: 98.4, 78, 16, 118/73, 94% room air GENERAL: laying in bed, awake, uncomfortable. EYES: Pupils equal. Conjunctiva normal. HEENT: External appearance of nose and ears normal, oral cavity grossly normal. NECK: JVD not raised; masses not palpable. HEART: First and second heart sounds are normal; no edema. LUNGS: Respiratory rate normal; clear to auscultation. ABDOMEN: Soft, nontender, liver spleen not palpable, no masses palpable. PSYCH: [Alert and oriented x3; mood and affect anxious. MUSCULOSKELETAL:No Clubbing/cyanosis;muscles-grossly intact. Bilateral plantars and knee reflexes are equivocal. Difficult leg raising up to 30 on both the sides. Surgical scar on the back, with evidence of scoliosis NEUROLOGICAL: Cranial nerves grossly intact; no facial asymmetry, power and sensation grossly intact. Decreased sensation bilaterally in the lower abdomen and upper thigh. Hyperaesthesia, and both lower quadrants abdomen INVESTIGATIONS, reviewed in the clinical context: Vitamin B12, folate: Normal Cervical spine/thoracic/lumbar spine MRI: Nondiagnostic. Severe disc space narrowing at L4-L5 May 28: White count 5.5, hemoglobin 14.3 platelets 226 sodium 132 potassium 4 creatinine 0.69 White count 7.2 hemoglobin 16.4 platelets 254 sodium 132 potassium 3.8 BUN 12 crit and 0.71 calcium 10.4 UA ketone 3+ blood small Coronavirus [PCR]: Not detected Computed tomography scan abdomen and pelvis with contrast: Fluid-filled loops of small bowel present. Lumbar spine x-ray film personally reviewed by me: Shows prominent bowel, significant scoliotic findings. Osteopenia. Disc space narrowing. 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 Patient's had pain on and off now progressively getting worse. Especially as L4-L5 and other disc space narrowing. Causing radicular pain bilaterally and hypersensitivity to skin of lower abdomen. And referred pain to her lower extremity. Follow with orthopedic spine. And neurology.. -Moderate protein calorie malnutrition with a BMI of 15.9 from decreased oral intake Dietitian. ensure -Ileus or small bowel from pain and decreased activity. Metamucil. 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 Cymbalta trazodone added by psychiatry. Discussed with patient. DC sitter. Continue IV fluids. Decreased appetite
[2021-05-29] MEDS: traZODone HCL 50 MG TAB PO SCH (21:07)
[2021-05-29] MEDS: HYDROmorphone 1 MG/ML 1 ML SYRINGE IVP PRN (21:31)
[2021-05-30] MEDS: ACETAMINOPHEN TAB 325 MG TAB PO SCH ×5 (01:11→22:01)
[2021-05-30] MEDS: SODIUM CHLORIDE 0.9% 1,000 ML IV SCH ×4 (01:11→21:33)
[2021-05-30] MEDS: HYDROmorphone 1 MG/ML 1 ML SYRINGE IVP PRN ×5 (02:53→22:06)
[2021-05-30] MEDS: NAPROXEN 250 MG TAB PO SCH ×3 (07:41→21:32)
[2021-05-30] MEDS: ENOXAPARIN 40 MG/0.4 ML SYRINGE SQ SCH (07:56)
[2021-05-30] MEDS: BACLOFEN 10 MG TAB PO SCH ×4 (07:56→21:32)
[2021-05-30] MEDS: predniSONE 20 MG TAB PO SCH ×2 (07:57→19:36)
[2021-05-30] MEDS: DULoxetine HCL 30 MG CAPSULE.DR PO SCH (07:59)
[2021-05-30] MEDS: FAMOTIDINE 20 MG TAB PO SCH ×2 (08:00→19:35)
[2021-05-30] MEDS: NICOTINE 7MG/24HR PATCH TRANSDERM SCH (08:00)
[2021-05-30] MEDS: GABAPENTIN 300 MG CAP PO SCH ×2 (08:00→19:36)
[2021-05-30] MEDS: ONDANSETRON 4 MG/2 ML VIAL IVP PRN ×2 (08:14→17:48)
--- NOTE | 2021-05-30 09:37 | P.PN ---
Progress Note - Text Progress Note Date: 05/30/21 The patient is seen and examined at bedside. She says she may be feels a little bit better but still has significant numbness and she is having knife-type pain at her abdomen particularly in the center of her anterior abdomen radiating toward the sides and toward her flanks bilaterally. When distracted the pain seems to decrease. When talking about the incident and her issues she seems to have worsening. She is able to move her legs around she says the pain occasionally goes down toward her left to. She says the pain also goes up to the base of her neck and into her chest. She denies shortness of breath. She admits to being nauseous. She says that she always feels nauseous like she's got a thorough up. She has not been vomiting. She has eaten only very small amounts. She says she had one tiny bowel movement but feels that she has decreased ability to pass gas. She says she has not had a regular bowel movement in the past 4 days. She denies shortness of breath. She denies weakness in her lower extremities. She says she is able to void appropriately. She has been getting up to go P is able to stand but feels much over because of her abdominal pain. On exam. She is conversant without any shortness of breath. She is distractible from her pain but it is uncomfortable around her abdomen. She is not particularly localized pain at her lower back. There are times well we talked and during her exam that she moves her legs freely with full 5 out of 5 strength. Other times she maintains her strength but has pain at her abdomen with movement and her legs. She's not having pain in her hips. She is not having decreased sensation in her legs or feet. She has 5 out of 5 strength the dorsal flexion plantar flexion and EHL. Her thighs and calves soft nontender. Her back is clear. She has a Band-Aid over her myelogram site. She denies any current headaches. At her abdomen she is guarding significantly. She is sensitive particularly around her abdomen even to light touch and certainly to any significant palpation or percussion. It is not over a specific pattern. Diffuse hypersensitivity around her abdomen. Her CT myelogram is reviewed. Her MRI was only partially completed and the did not perform any axial views. I reviewed the images and reports. Assessment and plan Continued abdominal pain with numbness and paresthesia with dysesthesia around her abdomen and flanks History of spinal surgery for scoliosis with Berger nhi from T3 to L. degenerative disc disease L4 5 with bilateral foraminal stenosis No specific radicular pattern to her pain No lower extremity weakness or lower extremity neurologic loss Is very difficult to fully ascertain the nature of the patient's symptoms. I do not think that her symptoms are from spinal compressive or stability origin. She does have a stable fusion with her prior Berger nhi for sc oliosis surgery from T3 to L3. The fusion is mature and stable. She does have significant disc degeneration L4 5 with bilateral foraminal encroachment. The issues at L4 5 do not correlate well at all with her abdominal numbness and dysesthesia. I do not think that her symptoms stem from the L4 5 level. I do not think that her symptoms stems specifically from a spinal compressive or stability origin. The imaging does not show any evidence of disc herniation or stenosis around her lower thoracic spine where the spinal nerve roots would innervate around her abdominal dermatomes. The CT myelogram does make specific mention of the possibility of superior mesenteric artery syndrome. I would defer to medicine and GI and possibly surgery to further evaluate this type of issue. From a spine standpoint it is okay for the patient to mobilize. I don't see a specific area for interventional pain management at her spine for her current complaints. If she were to develop specific radiculopathy at her lower extremities as a main contributor of her symptoms then she could consider interventional pain management at L4 5 but this does not seem to be her primary cause at this hospitalization. The patient should continue medical management and may consider further evaluation given her abdominal pain and abdominal findings on the computed tomography scan.
--- NOTE | 2021-05-30 10:46 | CONS ---
CONSULTATION DATE OF DICTATION: 05/30/2021 The patient is a 55-year-old pleasant white female admitted to the hospital with severe lower abdominal pain radiating to the back and radiating to her left lower extremity for the last 3 weeks' duration. Prior to that she was in perfect health. Today she is describing the pain mostly in the left lower quadrant area as well as in the right lower quadrant area radiating to the back, associated with severe nausea but no emesis. She thinks she lost approximately 15 pounds in the last one-year duration. She has been having severe chronic constipation. Since being in the hospital she had CT of the abdomen and pelvis done that was unremarkable. Subsequently, because of clinical suspicion for back problems, Dr. Sheldon was consulted, and so was Dr. Jenkins from Neurology. She had MRI of the thoracic and lumbar spine which does show some degenerative changes, but according to them her symptoms are not related to the back problems. On further questioning, the patient denies ever having an EGD or colonoscopy. She denies any recent NSAID use. No prior history of peptic ulcer disease. One of the MRIs did show possible superior mesenteric artery syndrome. PHYSICAL EXAMINATION: She appears comfortable. No apparent distress. Vital signs are stable. Blood pressure is 110/ , pulse rate 58, temperature 97.3. HEENT examination unremarkable. Conjunctivae pink. Sclerae anicteric. Oral cavity no lesions. Neck: No JVD or lymph node enlargement. Chest was clear to auscultation. Heart: Regular rate and rhythm. Abdomen: Diffuse tenderness all through the abdomen with severe paresthesias and very sensitive skin. It is not distended. Extremities: No pedal edema. Neuro: She is alert and oriented x3. No focal deficits. LABS FROM YESTERDAY: CBC is normal. Basic metabolic panel is within normal limits. CMP is within normal limits. Amylase and lipase are normal. IMPRESSION: Severe lower abdominal pain radiating to the back for the last 3 weeks' duration. Patient had extensive workup in the last one week since being in the hospital. Thoracic and lumbar spine CT did show possible superior mesenteric artery syndrome. CT of the abdomen and pelvis done prior to that was unremarkable other than nonspecific colitis. At this time it is unclear if we are dealing with gastrointestinal source of abdominal pain, but doubt superior mesenteric artery syndrome based on the clinical presentation. RECOMMENDATIONS: 1. Obtain upper GI series to evaluate this further. 2. I had a lengthy discussion with the patient regarding a colonoscopy during this hospitalization, but at this time she refuses to have this done. 3. Start her on MiraLAX one scoop twice daily to help with chronic constipation. 4. Continue with pain management. 5. Will follow with you closely. Thank you for this consultation. ALTA / TJ: [id number] /
--- NOTE | 2021-05-30 11:07 | P.PN ---
Subjective Progress Note Date: 05/30/21 The patient is seen at bedside and states her numbness and tingling over lower abdomen region is improving over anterior regions but feels has it on lateral regions. Otherwise denies any new neurological problems. She continues to have abdominal pain. She had CT myelogram of Lumbar and Thoracic region on 05/29/2021 and it is reported as incidentally, there is a decrease the oral mesenteric angle and de creased aortomesenteric a distance (between the aorta and SMA). There is secondary flattening of the third portion of duodenum and mild narrowing of the left renal vein. On the patient's 05/27/2021 CT, there was distention of the proximal duodenum. Finding and can be seen with SMA syndrome. Clinically correlate to exclude the this entity as an etiology for the patient's abdominal pain. Also it's reported the patient has Berger nhi from T4 down through L3 with mature osseous fusion up to T2. There is accelerated degenerative changes both above and below the fusion with variable mild spinal canal stenosis in the lower cervical spine and at T1-T2. Degenerative grade 1 enterolithiasis at T1- T2. Possible severe right neuroforaminal stenosis at C5-C6. Variable moderate neuroforaminal narrowing at other level in the visualized lower cervical spine and also at the T1-T2. Disc bulge and ligamentum flavum thickening at L4-L5 mildly narrowing the spinal canal. Hypertrophic facet arthropathy lower lumbar spine. Variable moderate neuroforaminal narrowing lower spine. Objective - Vital Signs Vital signs: Vital Signs Temp 97.3 F L 05/30/21 07:44 Pulse 58 L 05/30/21 07:44 Resp 18 05/30/21 07:44 BP 126/77 05/30/21 07:44 Pulse Ox 97 05/30/21 07:44 Intake & Output 05/29/21 05/30/21 05/30/21 18:59 06:59 18:59 Intake Total 118 118 Balance 118 118 Weight 40.823 kg Intake: Oral 118 118 Other: # Voids 2 1 # Bowel Movements 0 - Exam GENERAL: The patient is a lying in bed and is in moderate to severe acute distress. She appears cachectic ABDOMEN/GI: Bowel sounds present in all 4 quadrants. No tenderness to palpation throughout. NEUROLOGICAL: I had a female porcelain turner during examination. Higher mental function: The patient is awake, alert, oriented to self, place and time. Patient is following commands. No aphasia and no neglect. Cranial nerves: The pupils are round, equal and reactive to light and accommodation. Visual krishnan are full to confrontation throughout. Extraocular movement is intact no nystagmus is noted. Facial sensation is normal to touch throughout. The facial strength is normal throughout. Hearing is normal bilaterally to hand rub. Tongue is midline and moved [id number] without any difficulty. No dysarthria is noted. Shoulder shrug is normal bilaterally. Motor: Gait: Is limited because of pain but is able to stand up on her own without assistance. The strength is 5 over 5 throughout upper and lower she is lifting above gravity without focality (individual muscles is limited because of pain). Normal tone and decrease bulk throughout since patient is cachectic. Cerebellum: Normal finger to nose bilaterally. Sensation: Sensation was inconsistent but appears ?decrease from T9-L1/L2 dermatome anteriorly and posterior stated it was normal. Reflexes (right/left): 1-2+ throughout uppers while lowers are 2+ throughout. Plantars are downgoing bilaterally. WORK-UP: Chemistry panel is the sodium is 132 and initial calcium 7.4 but repeated is 9.4. The otherwise rest of the chemistry panel is unremarkable. AST and ALT is within normal limits. Amylase and lipase is within normal limits Urinalysis is negative for urinary tract infection. Turner virus PCR was not detected. Vitamin Vitamin B12: 542 Serum >20 HbA1c: 5.9 PT, PTT and INR are within normal limits CT lumbar spine is reported as single vertical stabilization nhi which comes down from the thoracic spine on the left with a lateral pelvic at the midline L3 level. There is lateral osseous fusion changes along with variable laminectomies utilized in the lower thoracic and upper to mid lumbar spine. Bone effacement of the visualized portion of the vertical stabilization rods.Levoconvex scoliosis below the thoracolumbar fusion and associated severe degenerative disc disease L4 to L5. Additional hypertrophic facet arthropathy mid to lower lumbar spine. Changes include the bulging disc and ligamentum flavum thickening result in the mild overall spinal canal stenosis at L4-L5 with moderate right neuroforaminal stenosis. Mild bilateral neuroforaminal stenosis at L5-S1. Thoracic spine x-ray is reported as single vertical Berger nhi down through the T3 with proximal and distal laminal looks. Add dextroconvex scoliosis with a Salgado angle of 56. Incidentally focal nodular projection along the posterior lower chest of the lateral view. Finding may represent summation artifact. Recommend CT of the chest to exclude the suspicious pulmonary nodule. CT of the abdomen and pelvis is reported as difficult to exclude colitis, enteritis. Postop changes. Additional finding above. MRI C-spine, Thoracic and Lumbar w/w/o: It is reported marked artifact from large metallic nhi marking evaluation essentially nondiagnostic for evaluating cord edema. There is vacuum disc phenomenon with moderate to severe disc space narrowing L4-L5 level incidentally noted. I personally reviewed and agree. - Labs CBC & Chem 7: 05/28/21 06:51 05/28/21 06:51 Assessment and Plan Assessment: * Abdominal pain, nausea, vomiting with numbness/paresthesia and and dysesthesia. Numbness and Paresthesia seems decrease from T9-L1/L2: Unknown etiology. Normal strength and reflexes of lowers. No complaints of uppers. MRI C-spine/Thoracic/Lumbar is limited because of artifact. CT Myelogram is possible suggestive of Superior Mesteric Artery syndrome. * History of severe Scoliosos s/p fusion over thoracic-lumbar at age [age] years old * Lumbar spondylosis L4-L5 * Cervical spondylosis * Tobacco use Plan: I don't think patient symptoms are from spinal compression. All work-up so far is negative for that. Orthopedic team feels the same way as well. There is mention on CT myelogram of possible SMA sydrome and GI team is on board and will defer further work-up to them. Orthopedic team started the patient on gabapentin 300 mg a tablet twice a day. Every 4 hours neuro checks PT and OT is consulted We'll defer the rest of the medical measure to Primary Team. The plan is discussed with the patient, Orthopedic team and her nurse. There is no further neurological work-up. Please notify neurology team if any further concerns. Bryce Jenkins M.D. Neuro-hospitalist Time with Patient: Less than 30
[2021-05-30 11:11] LABS: African American GFR (CKD) >90 (>60 ml/min/1.73 sqM); Anion Gap 4 mmol/L; Blood Urea Nitrogen 20 mg/dL (7-17); Calcium 9.1 mg/dL (8.4-10.2); Carbon Dioxide 25 mmol/L (22-30); Chloride 102 mmol/L (98-107); Glucose 137 mg/dL (74-99); Non-African American GFR(CKD) >90 (>60 ml/min/1.73 sqM); Sodium 131 mmol/L (137-145)
--- NOTE | 2021-05-30 13:32 | P.GSCN ---
History of Present Illness Consult date: 05/30/21 Reason for Consult: Abdominal pain History of present illness: 55-year-old female hospitalized 3 days ago with lower abdominal/groin pain. Jeannine flores'matthew points to the left groin and says the pain started there radiated around to her left flank and also down the thigh and at times even to her left foot. Since her symptoms began 2 weeks ago somewhat suddenly. Patient states associated with that is occasional episodes of nausea and she has had episodes of vomiting as well. Describes chronic constipation. Patient says she has no significant pain elsewhere in the abdomen only and the lower groin region. Left is where the pain started but she has pain in the right groin at times as well. Patient also describes bilateral groin numbness. Says this started with the onset of her pain. Patient has had a rather extensive workup thus far. Radiology question whether there could be some degree of superior mesenteric artery syndrome however no significant proximal dilation of the duodenum or stomach on previous CAT scan. Certainly that would not explain her left groin pain. GI has also seen this patient. Plans are currently underway for possible tertiary care referral. Review of Systems The patient denies any acute changes in vision or hearing, no dysphagia or odynophagia, no chest pain or shortness of breath, no dysuria or hematuria, no headache, no runny nose, no rectal bleeding or melena Past Medical History Past Medical History: No Reported History Additional Past Medical History / Comment(s): Pancreatitis, chronic back pain. History of scoliosis with surgical fusion from L3 into her thoracic spine over 30 years ago History of Any Multi-Drug Resistant Organisms: None Reported Past Surgical History: Cholecystectomy Additional Past Surgical History / Comment(s): Back Past Anesthesia/Blood Transfusion Reactions: No Reported Reaction Additional Past Anesthesia/Blood Transfusion Reaction / Comm: Pt received blood with back surgery without reaction. Past Psychological History: No Psychological Hx Reported Smoking Status: Former smoker Past Alcohol Use History: None Reported Past Drug Use History: Marijuana - Past Family History Father History Unknown: Yes Mother Family Medical History: No Reported History Additional Family Medical History / Comment(s): Mother is healthy Medications and Allergies Home Medications Medication Instructions Recorded Confirmed Type Rosuvastatin [Crestor] 20 mg PO DAILY 05/27/21 05/27/21 History Allergies Allergy/AdvReac Type Severity Reaction Status Date / Time acetaminophen [From Tylenol] Allergy Rash/Hives Verified 05/27/21 10:46 Penicillins Allergy hives/GRISELDA Verified 05/27/21 10:46 Surgical - Exam Vital Signs Temp Pulse Resp BP Pulse Ox 97.6 F 85 24 142/81 97 05/27/21 10:15 05/27/21 10:15 05/27/21 10:15 05/27/21 10:15 05/27/21 10:15 Physical exam: General: Well-developed, well-nourished HEENT: Normocephalic, sclerae nonicteric Abdomen: Mild bilateral lower quadrant tenderness, nondistended Extremities: No edema Neuro: Alert and oriented Results - Labs 05/28/21 06:51 05/30/21 10:07 Abnormal Lab Results - Last 24 Hours (Table) 05/30/21 Range/Units 10:07 Sodium 131 L (137-145) mmol/L BUN 20 H (7-17) mg/dL Glucose 137 H (74-99) mg/dL Diabetes panel 05/30/21 Range/Units 10:07 Sodium 131 L (137-145) mmol/L Potassium 4.0 (3.5-5.1) mmol/L Chloride 102 (98-107) mmol/L Carbon Dioxide 25 (22-30) mmol/L BUN 20 H (7-17) mg/dL Creatinine 0.67 (0.52-1.04) mg/dL Glucose 137 H (74-99) mg/dL Calcium 9.1 (8.4-10.2) mg/dL Calcium panel 05/30/21 Range/Units 10:07 Calcium 9.1 (8.4-10.2) mg/dL Pituitary panel 05/30/21 Range/Units 10:07 Sodium 131 L (137-145) mmol/L Potassium 4.0 (3.5-5.1) mmol/L Chloride 102 (98-107) mmol/L Carbon Dioxide 25 (22-30) mmol/L BUN 20 H (7-17) mg/dL Creatinine 0.67 (0.52-1.04) mg/dL Glucose 137 H (74-99) mg/dL Calcium 9.1 (8.4-10.2) mg/dL Adrenal panel 05/30/21 Range/Units 10:07 Sodium 131 L (137-145) mmol/L Potassium 4.0 (3.5-5.1) mmol/L Chloride 102 (98-107) mmol/L Carbon Dioxide 25 (22-30) mmol/L BUN 20 H (7-17) mg/dL Creatinine 0.67 (0.52-1.04) mg/dL Glucose 137 H (74-99) mg/dL Calcium 9.1 (8.4-10.2) mg/dL Assessment and Plan (1) Abdominal pain Narrative/Plan: 55-year-old female with atypical lower abdominal pain. Etiology unclear at this time. Given the fact the pain radiates down the left thigh to the foot and she has associated numbness in both groin regions radicular pain suspected. Agree with plans for tertiary care consultation. Current Visit: Yes Status: Acute Code(s): R10.9 - UNSPECIFIED ABDOMINAL PAIN SNOMED Code(s): 49600458
[2021-05-30] MEDS: ALPRAZolam 0.25 MG TAB PO PRN (17:48)
[2021-05-30] MEDS: traZODone HCL 50 MG TAB PO SCH (19:36)
[2021-05-31] MEDS: HYDROmorphone 1 MG/ML 1 ML SYRINGE IVP PRN ×4 (01:58→21:37)
[2021-05-31] MEDS: SODIUM CHLORIDE 0.9% 1,000 ML IV SCH ×3 (03:23→22:34)
[2021-05-31] MEDS: ACETAMINOPHEN TAB 325 MG TAB PO SCH ×3 (04:43→18:21)
[2021-05-31] MEDS: ENOXAPARIN 40 MG/0.4 ML SYRINGE SQ SCH (07:12)
[2021-05-31] MEDS: BACLOFEN 10 MG TAB PO SCH ×4 (07:12→21:33)
[2021-05-31] MEDS: predniSONE 20 MG TAB PO SCH ×2 (07:13→21:33)
[2021-05-31] MEDS: NAPROXEN 250 MG TAB PO SCH ×3 (07:13→21:34)
[2021-05-31] MEDS: FAMOTIDINE 20 MG TAB PO SCH ×2 (07:18→21:33)
[2021-05-31] MEDS: ONDANSETRON 4 MG/2 ML VIAL IVP PRN (07:18)
[2021-05-31] MEDS: GABAPENTIN 300 MG CAP PO SCH ×2 (07:18→21:33)
[2021-05-31] MEDS: DULoxetine HCL 30 MG CAPSULE.DR PO SCH (07:18)
[2021-05-31] MEDS: NICOTINE 7MG/24HR PATCH TRANSDERM SCH (07:19)
--- NOTE | 2021-05-31 08:00 | P.PN ---
Subjective Progress Note Date: 05/31/21 Principal diagnosis: Generalized pain Patient tearful this morning. Says her pain has started to go down the left leg once again. Once again describes numbness at times in both groins. Describes nausea and vomiting with liquid intake. Apparently transfer processes underway and she has been accepted to [facility]. Awaiting bed assignment. Objective - Vital Signs Vital signs: Vital Signs Temp 97.4 F L 05/31/21 07:19 Pulse 73 05/31/21 07:33 Resp 16 05/31/21 07:33 BP 171/72 05/31/21 07:19 Pulse Ox 98 05/31/21 07:19 Intake & Output 05/30/21 05/31/21 05/31/21 18:59 06:59 18:59 Intake Total 236 Balance 236 Intake: Oral 236 Other: # Voids 2 2 # Bowel Movements 0 - Exam Abdomen: Soft, mild diffuse tenderness, increased in the lower groin regions, nondistended, no rebound or guarding - Labs CBC & Chem 7: 05/28/21 06:51 05/30/21 10:07 Labs: Abnormal Lab Results - Last 24 Hours (Table) 05/30/21 Range/Units 10:07 Sodium 131 L (137-145) mmol/L BUN 20 H (7-17) mg/dL Glucose 137 H (74-99) mg/dL Assessment and Plan (1) Abdominal pain Narrative/Plan: Patient with generalized pain and pain radiating down the left leg. Etiology remains unclear and how this is associated with the patient's complaints of nausea and vomiting is unclear. Agree with plans for transfer to tertiary care center. Continue diet as ordered for now. Continue IV fluids. Current Visit: Yes Status: Acute Code(s): R10.9 - UNSPECIFIED ABDOMINAL PAIN SNOMED Code(s): 72536208
--- NOTE | 2021-05-31 10:39 | P.PN ---
Progress Note - Text Progress Note Date: 05/31/21 The patient is seen and examined again today at bedside. She continues complaining of severe pain toward her left lower quadrant of her abdomen toward her left groin. She does pain also is under underneath her ribs and deep in that area she says the pain worsens whenever she tries to eat. She admits to nausea and vomiting. She says each time she eats she knows that the pain has become. She says the pain also hurts when she tries to move her leg. The pain goes down her into her groin and into the anterior aspect of her left thigh. She says that every once a while it'll go down toward her foot all the way to her toe. She says this happens when she eats as well. She says it is numb around her abdomen and stomach and moves toward her back and flank. She remains afebrile. She is frustrated and tearful. Her abdomen is hypersensitive with any palpation particularly on the left side. It is soft. She is guarding significantly. At her lower extremity she has sustained dorsal flexion plantarflexion and EHL. She is able to lift her legs up off the bed and appears to have good strength. There is no pain with internal/external rotation of her hips. I reviewed general surgery's consultation note as well. I again reviewed the computed tomography scan and myelogram at her spine. Assessment and plan Atypical abdominal pain Degenerative disc disease L4 5 Pain toward her left lower extremity without specific radicular pattern Dysesthesia around her abdomen and flanks worse on the left than the right History of spinal surgery for scoliosis from T3 to L3 with stable fusion and Berger nhi Remains very difficult to discern the specific origin the patient's symptoms. There are reviewing the possibility of superior mesenteric syndrome however many of her findings are not consistent with this. We have been reviewing possibility of radicular issues and this certainly does not follow a specific radicular pattern. She does have significant disc degeneration at L4 5 and portions of her symptoms can stem from this. She could consider treatment with steroid medication or interventional pain management targeting the L4 5 level. The L4 5 issues could not explain the hyperesthesia around her abdomen and flanks, nor would it explain the increased symptoms with oral intake or her nausea and vomiting. There are plans for her to transfer to a tertiary care facility for further evaluation workup and potential treatment and I think this is appropriate as I do not have a specific plan of treatment for her spine at this point. She should continue workup with the other services as well in regard to her abdominal pain and numbness
[2021-05-31] MEDS: ALPRAZolam 0.25 MG TAB PO PRN (13:52)
--- NOTE | 2021-05-31 20:39 | CONS ---
CONSULTATION DATE OF SERVICE: 05/31/2021. PURPOSE FOR CONSULTATION: Evaluate for depression. INTERVAL HISTORY: The patient was seen yesterday by Dr. Kasper. As noted the patient was admitted for abdominal pain. She is noted to have chronic low back pain, severe scoliosis, pancreatitis and has been found to have some complications in her lab work as well. Psychiatry was initially consulted because the patient apparently had made some suicidal statements. When Dr. Kasper saw her yesterday she indicated that she had made statements out of frustration, though that she did not have any thoughts, impulses or intent in regard to harming herself. She has no history of these issues. She was assessed by Dr. Kasper as having adjustment disorder and generalized anxiety disorder along with cannabis use disorder. He started the patient on Cymbalta 30 mg a day along with trazodone 50 mg at bedtime for insomnia. When I talked to the patient today, her main focus was on the pain that she is having. Her understanding is that she will be transferred to [facility] for further evaluation. She described a range of pain issues that she has been struggling with for at least the last 4 weeks, which included some left sided mid abdominal pain along with numbness on that side. Also note that she has had chronic back pain that has been a complicating factor that goes back to history of scoliosis with surgery at age 12. She notes that she has also been having some muscle spasms when the pain flares up. The pain that she is having now comes and go but for the most part, it has been fairly persistent, though it can intensify at times. When I asked her about Cymbalta which she was given this morning she was adamant about the idea that she did not want to be on Cymbalta. She said she had been prescribed Cymbalta in the past and had a bad reaction to it. She was unclear that she actually had been prescribed Cymbalta by Dr. Kasper or that she received 1 dose of Cymbalta this morning. She states that she has had a lot of difficulties over the years taking solid pills and that in general when she is prescribed medications, she does best when she takes them as liquid. She acknowledged that she does use marijuana, which she said had been supported by her doctor as 1 means of helping with pain management. She notes that she has not been sleeping well because of pain. She says that she has significant anxiety issues and has had some past problems with depression though anxiety was more of an issue for her. At this point, she anticipates being transferred possibly by early tomorrow as bed availability comes up. It is noteworthy that the patient began described being at some length struggles that her family has experienced. She talked about 2 of her daughters who have had significant mental health issues themselves as well as other problems one of her daughter's child has. She went on at some length about what seemed to be very traumatic experiences that a number of family members have had. MENTAL STATUS: When I talked to the patient, she was quite restless. It was noted that there would be times in the interview where she would almost seem to be writhing in pain, though other times where she could be more relaxed. Some of the time when she started talking about her issue, she talked in a very strong solid voice and seemed to override any pain issues that she might be having. There were a few different times in the interview where she was able to smile and joke a little. At one point, she said she did not want to laugh because she was afraid she would set off more pain. Her thoughts were clear and coherent. She was spontaneous and interactive and talked at length about her concerns and issues. She was oriented and alert. She voiced no thoughts or impulse towards self-harm. She was oriented and alert. ASSESSMENT: At this point I would continue a diagnosis of depression, there might be continued evaluation for possible major depression. I will discontinue Cymbalta based on the patient's concern about past use. Given that she will be transferred, I would not look at starting another psychotropic, though would defer to her followup care. MMODL / IJN: [id number] /
[2021-05-31] MEDS: traZODone HCL 50 MG TAB PO SCH (21:33)
--- NOTE | 2021-05-31 21:46 | P.PN ---
Progress Note - Text Progress Note Date: 05/30/21 Chief Complaint: Back and abdominal pain This is a very pleasant 55-year-old patient of Dr. Lopez. Patient at the age of 12 for severe scoliosis had surgery done in [place] and also placed what she described from her thoracic to lumbar spine. Over the last 2 years she's had pain on and off. And has seen different physicians. For her back. Through her family doctor. She has been prescribed pain medications. For last 2 weeks patient denies having increasing pain in the lower back and also patient describes in the abdominal wall. She finds the abdominal wall to be very sensitive to touch. She was having a bowel movement every day up to 2 weeks ago. Now she is not eating. Because of pain and has constipation. No nausea vomiting. She also feeling some numbness in the legs. Also having some more trouble walking. Having increasing trouble rolling about in bed. Back pain is much worse with movements. She's been to a local ER apparently to 3 times-4 lower abdominal pain. She does seem that the abdominal wall is sensitive to touch. She is also describing shooting pain from the lower back up the spine. She is quite a bit of discomfort. Because of concerns for side effects including constipation and has been avoiding pain medications. Except for marijuana May 28: Patient having significant pain in the lower back, hyperesthesia in the lower abdominal wall and also having erratic or pain down the legs. Spoke to Dr. Hoskins from orthopedics. He is consulting neurology and an MRA of the spine was ordered. Latter was done, essentially nondiagnostic May 29: Continues to have significant pain. Neurology had ordered myelogram. Last night patient to express suicidal ideation. I ordered a sitter. Psychiatry consultation. The added Cymbalta and trazodone. Sitter discontinued. Discussed with patient. Further testing computed tomography scan ordered by orthopedic. May 30: Patient continues to have significant pain. Both of the abdomen. Pain with superficial touching also. Also pain down the left leg. Eating small amounts. Discussed with Dr. Campuzano. And also with Dr. Knapp from general surgery. Discussed with patient. Acceptable to transferred to [facility]. Spoke to the accepting team there. Patient accepted. Currently no beds available. We do not have GI service going forward. Review of systems: Was done for constitutional, cardiovascular, GI, pulmonary. relevant finding as above Current medications reviewed. Past medical history to include: Pancreatitis, chronic back pain Social history: Lives with her boyfriend. Patient been smoking for about 35 years. Not significantly cutback. Does use marijuana for pain. Family history: Reviewed, noncontributory to presentation Physical examination: VITAL SIGNS: 98, 65, 18, 132.75, 98% room air GENERAL: laying in bed, awake, uncomfortable. EYES: Pupils equal. Conjunctiva normal. HEENT: External appearance of nose and ears normal, oral cavity grossly normal. NECK: JVD not raised; masses not palpable. HEART: First and second heart sounds are normal; no edema. LUNGS: Respiratory rate normal; clear to auscultation. ABDOMEN: Soft, tenderness. No guarding rigidity., liver spleen not palpable, no masses palpable. PSYCH: [Alert and oriented x3; mood and affect anxious. MUSCULOSKELETAL:No Clubbing/cyanosis;muscles-grossly intact. Bilateral plantars and knee reflexes are equivocal. Difficult leg raising up to 30 on both the sides. Surgical scar on the back, with evidence of scoliosis NEUROLOGICAL: Cranial nerves grossly intact; no facial asymmetry, power and sensation grossly intact. Decreased sensation bilaterally in the lower abdomen and upper thigh. Hyperaesthesia, and both lower quadrants abdomen INVESTIGATIONS, reviewed in the clinical context: Vitamin B12, folate: Normal Cervical spine/thoracic/lumbar spine MRI: Nondiagnostic. Severe disc space narrowing at L4-L5 May 28: White count 5.5, hemoglobin 14.3 platelets 226 sodium 132 potassium 4 creatinine 0.69 White count 7.2 hemoglobin 16.4 platelets 254 sodium 132 potassium 3.8 BUN 12 crit and 0.71 calcium 10.4 UA ketone 3+ blood small Coronavirus [PCR]: Not detected Computed tomography scan abdomen and pelvis with contrast: Fluid-filled loops of small bowel present. Lumbar spine x-ray film personally reviewed by me: Shows prominent bowel, significant scoliotic findings. Osteopenia. Disc space narrowing. Assessment and plan: -Severe spinal arthritis. Patient L4-L5. Some radicular pain. Does not explain patient's abdominal findings as a whole. Orthopedics on the case. -Acute abdominal pain. Significant superficial pain also present. Discussed with Dr. Campuzano from GI. Discussed with Dr. Knapp from general surgery. There was some question about SMA syndrome. Does not appear to be so. -Moderate protein calorie malnutrition with a BMI of 15.9 from decreased oral intake Dietitian. ensure -Ileus or small bowel from pain and decreased activity. Metamucil. 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 Discussed with patient. Patient is accepted to be transferred to [facility] for higher level of care. Do not have GI services going forward. We also do not have a diagnosis for her. spent today about 45 minutes with over 30 minutes of discussion
--- NOTE | 2021-05-31 21:48 | P.PN ---
Progress Note - Text Progress Note Date: 05/31/21 Chief Complaint: Back and abdominal pain This is a very pleasant 55-year-old patient of Dr. Lopez. Patient at the age of 12 for severe scoliosis had surgery done in [place] and also placed what she described from her thoracic to lumbar spine. Over the last 2 years she's had pain on and off. And has seen different physicians. For her back. Through her family doctor. She has been prescribed pain medications. For last 2 weeks patient denies having increasing pain in the lower back and also patient describes in the abdominal wall. She finds the abdominal wall to be very sensitive to touch. She was having a bowel movement every day up to 2 weeks ago. Now she is not eating. Because of pain and has constipation. No nausea vomiting. She also feeling some numbness in the legs. Also having some more trouble walking. Having increasing trouble rolling about in bed. Back pain is much worse with movements. She's been to a local ER apparently to 3 times-4 lower abdominal pain. She does seem that the abdominal wall is sensitive to touch. She is also describing shooting pain from the lower back up the spine. She is quite a bit of discomfort. Because of concerns for side effects including constipation and has been avoiding pain medications. Except for marijuana May 28: Patient having significant pain in the lower back, hyperesthesia in the lower abdominal wall and also having erratic or pain down the legs. Spoke to Dr. Hoskins from orthopedics. He is consulting neurology and an MRA of the spine was ordered. Latter was done, essentially nondiagnostic May 29: Continues to have significant pain. Neurology had ordered myelogram. Last night patient to express suicidal ideation. I ordered a sitter. Psychiatry consultation. The added Cymbalta and trazodone. Sitter discontinued. Discussed with patient. Further testing computed tomography scan ordered by orthopedic. May 30: Patient continues to have significant pain. Both of the abdomen. Pain with superficial touching also. Also pain down the left leg. Eating small amounts. Discussed with Dr. Campuzano. And also with Dr. Knapp from general surgery. Discussed with patient. Acceptable to transferred to [facility]. Spoke to the accepting team there. Patient accepted. Currently no beds available. We do not have GI service going forward. May 31: Patient remains in significant pain. Not eating much. Spoke to [facility] transfer team. Awaiting bed opening. Active Medications Acetaminophen (Acetaminophen Tab 325 Mg Tab) 650 mg PO Q6HR [facility] Last Admin: 05/31/21 18:21 Dose: Not Given Documented by: Alprazolam (Alprazolam 0.25 Mg Tab) 0.25 mg PO Q6HR PRN PRN Reason: Anxiety Last Admin: 05/31/21 13:52 Dose: 0.25 mg Documented by: Baclofen (Baclofen 10 Mg Tab) 5 mg PO QID [facility] Last Admin: 05/31/21 21:33 Dose: 5 mg Documented by: Calcium Carbonate/Glycine (Calcium Carbonate 500 Mg Chewable) 1,000 mg PO Q4HR PRN PRN Reason: Dyspepsia Last Admin: 05/31/21 07:18 Dose: 1,000 mg Documented by: Enoxaparin Sodium (Enoxaparin 40 Mg/0.4 Ml Syringe) 40 mg SQ DAILY [facility] Last Admin: 05/31/21 07:12 Dose: Not Given Documented by: Famotidine (Famotidine 20 Mg Tab) 20 mg PO BID [facility] Last Admin: 05/31/21 21:33 Dose: 20 mg Documented by: Gabapentin (Gabapentin 300 Mg Cap) 300 mg PO BID [facility] Last Admin: 05/31/21 21:33 Dose: 300 mg Documented by: Hydromorphone HCl (Hydromorphone 1 Mg/Ml 1 Ml Syringe) 0.5 mg IVP Q4HR PRN PRN Reason: SEVERE Pain Last Admin: 05/31/21 21:37 Dose: 0.5 mg Documented by: Sodium Chloride (Saline 0.9%) 1,000 mls @ 125 mls/hr IV .Q8H [facility] Last Admin: 05/31/21 11:09 Dose: Not Given Documented by: Lactulose (Lactulose 20 Gm/30 Ml Cup) 20 gm PO DAILY PRN PRN Reason: Constipation Melatonin (Melatonin 3 Mg Tablet) 3 mg PO HS PRN PRN Reason: Insomnia Naloxone HCl (Naloxone 0.4 Mg/Ml 1 Ml Vial) 0.2 mg IV Q2M PRN PRN Reason: Opioid Reversal Naproxen (Naproxen 250 Mg Tab) 250 mg PO TID [facility] Last Admin: 05/31/21 21:34 Dose: 250 mg Documented by: Nicotine (Nicotine 7mg/24hr Patch) 1 patch TRANSDERM DAILY [facility] Last Admin: 05/31/21 07:19 Dose: Not Given Documented by: Ondansetron HCl (Ondansetron 4 Mg/2 Ml Vial) 4 mg IVP Q6HR PRN PRN Reason: Nausea And Vomiting Last Admin: 05/31/21 07:18 Dose: 4 mg Documented by: Prednisone (Prednisone 20 Mg Tab) 20 mg PO BID [facility] Last Admin: 05/31/21 21:33 Dose: 20 mg Documented by: Trazodone HCl (Trazodone Hcl 50 Mg Tab) 50 mg PO HS [facility] Last Admin: 05/31/21 21:33 Dose: 50 mg Documented by: Past medical history to include: Pancreatitis, chronic back pain Social history: Lives with her boyfriend. Patient been smoking for about 35 years. Not significantly cutback. Does use marijuana for pain. Family history: Reviewed, noncontributory to presentation Physical examination: VITAL SIGNS: 98, 65, 18, 132/75, 98% room air GENERAL: laying in bed, awake, uncomfortable. EYES: Pupils equal. Conjunctiva normal. HEENT: External appearance of nose and ears normal, oral cavity grossly normal. NECK: JVD not raised; masses not palpable. HEART: First and second heart sounds are normal; no edema. LUNGS: Respiratory rate normal; clear to auscultation. ABDOMEN: Soft, tenderness. No guarding rigidity., liver spleen not palpable, no masses palpable. PSYCH: [Alert and oriented x3; mood and affect anxious. MUSCULOSKELETAL:No Clubbing/cyanosis;muscles-grossly intact. Bilateral plantars and knee reflexes are equivocal. Difficult leg raising up to 30 on both the sides. Surgical scar on the back, with evidence of scoliosis NEUROLOGICAL: Cranial nerves grossly intact; no facial asymmetry, power and sensation grossly intact. Decreased sensation bilaterally in the lower abdomen and upper thigh. Hyperaesthesia, and both lower quadrants abdomen INVESTIGATIONS, reviewed in the clinical context: Vitamin B12, folate: Normal Cervical spine/thoracic/lumbar spine MRI: Nondiagnostic. Severe disc space narrowing at L4-L5 May 3: White count 5.5, hemoglobin 14.3 platelets 226 sodium 132 potassium 4 creatinine 0.69 White count 7.2 hemoglobin 16.4 platelets 254 sodium 132 potassium 3.8 BUN 12 crit and 0.71 calcium 10.4 UA ketone 3+ blood small Coronavirus [PCR]: Not detected Computed tomography scan abdomen and pelvis with contrast: Fluid-filled loops of small bowel present. Lumbar spine x-ray film personally reviewed by me: Shows prominent bowel, s ignificant scoliotic findings. Osteopenia. Disc space narrowing. Assessment and plan: -Severe spinal arthritis. Patient L4-L5. Some radicular pain. Does not explain patient's abdominal findings as a whole. Orthopedics on the case. -Acute abdominal pain. Significant superficial pain also present. Discussed with Dr. Campuzano from GI. Discussed with Dr. Knapp from general surgery. There was some question about SMA syndrome. Does not appear to be so. -Moderate protein calorie malnutrition with a BMI of 15.9 from decreased oral intake Dietitian. ensure -Ileus or small bowel from pain and decreased activity. Metamucil. 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 No beds available. Spoke to the patient. Continue current treatment plan. Repeat labs in the morning. Encourage oral intake.
[2021-06-01] MEDS: ACETAMINOPHEN TAB 325 MG TAB PO SCH ×5 (00:10→22:01)
[2021-06-01] MEDS: HYDROmorphone 1 MG/ML 1 ML SYRINGE IVP PRN ×5 (02:09→21:11)
[2021-06-01] MEDS: SODIUM CHLORIDE 0.9% 1,000 ML IV SCH ×3 (03:00→19:21)
[2021-06-01 06:46] LABS: Basophils % (A) 0 %; Eosinophils % (A) 0 %; HCT 39.1 % (34.0-46.0); HGB 12.8 gm/dL (11.4-16.0); Lymphocytes # (A) 0.5 k/uL (1.0-4.8); Lymphocytes % (A) 10 %; MCH 32.6 pg (25.0-35.0); MCHC 32.8 g/dL (31.0-37.0); MCV 99.4 fL (80.0-100.0); Mean Platelet Volume 7.1; Monocytes # (A) 0.1 k/uL (0-1.0); Monocytes % (A) 2 %; Neutrophils # (A) 4.2 k/uL (1.3-7.7); Neutrophils % (A) 87 %; Platelet Count 197 k/uL (150-450); RBC 3.93 m/uL (3.80-5.40); RDW 12.4 % (11.5-15.5); WBC 4.8 k/uL (3.8-10.6)
[2021-06-01 07:03] LABS: ALT 16 U/L (4-34); AST 18 U/L (14-36); African American GFR (CKD) >90 (>60 ml/min/1.73 sqM); Albumin 2.8 g/dL (3.5-5.0); Albumin/Globulin Ratio 1.3; Alkaline Phosphatase 43 U/L (38-126); Anion Gap -1 mmol/L; Blood Urea Nitrogen 11 mg/dL (7-17); Calcium 8.6 mg/dL (8.4-10.2); Carbon Dioxide 29 mmol/L (22-30); Chloride 105 mmol/L (98-107); Globulin 2.1 g/dL; Glucose 120 mg/dL (74-99); Non-African American GFR(CKD) >90 (>60 ml/min/1.73 sqM); Potassium 4.6 mmol/L (3.5-5.1); Sodium 133 mmol/L (137-145); Total Bilirubin 0.6 mg/dL (0.2-1.3); Total Protein 4.9 g/dL (6.3-8.2)
[2021-06-01] MEDS: NAPROXEN 250 MG TAB PO SCH ×3 (08:57→21:13)
[2021-06-01] MEDS: FAMOTIDINE 20 MG TAB PO SCH ×2 (08:58→21:13)
[2021-06-01] MEDS: BACLOFEN 10 MG TAB PO SCH ×4 (08:58→21:12)
[2021-06-01] MEDS: ENOXAPARIN 40 MG/0.4 ML SYRINGE SQ SCH (08:58)
[2021-06-01] MEDS: predniSONE 20 MG TAB PO SCH ×2 (08:58→21:13)
[2021-06-01] MEDS: NICOTINE 7MG/24HR PATCH TRANSDERM SCH (08:58)
[2021-06-01] MEDS: GABAPENTIN 300 MG CAP PO SCH ×2 (08:58→21:13)
--- NOTE | 2021-06-01 12:40 | P.PN ---
<Bessy Cervantes - Last Filed: 06/01/21 12:33> Subjective Progress Note Date: 06/01/21 Principal diagnosis: Generalized pain CHIEF COMPLAINT: Abdominal pain HISTORY OF PRESENT ILLNESS: Patient is seen and examined. She states she is not doing well. States she is sick. States she has pain all over. States pain is in her lower abdomen radiating to her back and down her legs. States she cannot even tolerate her gown and underwear being on. Patient has been accepted to [facility] and awaiting a bed assignment. She remains afebrile. PHYSICAL EXAM: VITAL SIGNS: Reviewed. GENERAL: Well-developed in no acute distress. HEENT: No sclera icterus. Extraocular movements grossly intact. Moist buccal mucosa. Head is atraumatic, normocephalic. ABDOMEN: Soft. Nondistended. Patient will not allow lamination. NEUROLOGIC: Alert and oriented. Cranial nerves II through XII grossly intact. ASSESSMENT: 1. Abdominal pain with back pain radiating down the left leg. Etiology remains unclear. PLAN: 1. Continue symptomatic and supportive care 2. Continued diet as tolerated 3. Agree with plans to transfer to tertiary center The impression and plan of care has been dictated as directed. I performed a history and examination of this patient, discussed the same with the dictator. I agree with the dictator's note ,documented as a scribe. Any additional findings or plans will be noted. Objective - Vital Signs Vital signs: Vital Signs Temp 98.0 F 06/01/21 07:00 Pulse 64 06/01/21 07:00 Resp 18 06/01/21 07:00 BP 171/77 06/01/21 07:00 Pulse Ox 98 06/01/21 07:00 Intake & Output 05/31/21 06/01/21 06/01/21 18:59 06:59 18:59 Intake Total 354 Balance 354 Intake: Oral 354 Other: # Voids 2 2 # Bowel Movements 0 - Labs CBC & Chem 7: 06/01/21 06:01 06/01/21 06:01 Labs: Abnormal Lab Results - Last 24 Hours (Table) 06/01/21 06/01/21 Range/Units 06:01 06:01 Lymphocytes # 0.5 L (1.0-4.8) k/uL Sodium 133 L (137-145) mmol/L Glucose 120 H (74-99) mg/dL Total Protein 4.9 L (6.3-8.2) g/dL Albumin 2.8 L (3.5-5.0) g/dL <Clay Julio - Last Filed: 06/01/21 19:07> Subjective As above. Patient describes bilateral groin pain with radiation down the thighs. Patient says she feels better now but she did receive pain medication recently. She was able to tolerate some solid foods today. No witnessed vomiting. Objective - Vital Signs Vital signs: Vital Signs Temp 97.8 F 06/01/21 15:41 Pulse 61 06/01/21 15:41 Resp 18 06/01/21 15:41 BP 170/61 06/01/21 15:41 Pulse Ox 98 06/01/21 15:41 Intake & Output 06/01/21 06/01/21 06/02/21 06:59 18:59 06:59 Weight 40.823 kg Other: # Voids 2 2 - Labs CBC & Chem 7: 06/01/21 06:01 06/01/21 06:01 Labs: Abnormal Lab Results - Last 24 Hours (Table) 06/01/21 06/01/21 Range/Units 06:01 06:01 Lymphocytes # 0.5 L (1.0-4.8) k/uL Sodium 133 L (137-145) mmol/L Glucose 120 H (74-99) mg/dL Total Protein 4.9 L (6.3-8.2) g/dL Albumin 2.8 L (3.5-5.0) g/dL Assessment and Plan (1) Abdominal pain Current Visit: Yes Status: Acute Code(s): R10.9 - UNSPECIFIED ABDOMINAL PAIN SNOMED Code(s): 34931347
[2021-06-01] MEDS: ALPRAZolam 0.25 MG TAB PO PRN ×2 (12:52→19:20)
[2021-06-01] MEDS: traZODone HCL 50 MG TAB PO SCH (21:13)
--- NOTE | 2021-06-01 23:02 | P.PN ---
Progress Note - Text Progress Note Date: 06/01/21 Chief Complaint: Back and abdominal pain This is a very pleasant 55-year-old patient of Dr. Lopez. Patient at the age of 12 for severe scoliosis had surgery done in [place] and also placed what she described from her thoracic to lumbar spine. Over the last 2 years she's had pain on and off. And has seen different physicians. For her back. Through her family doctor. She has been prescribed pain medications. For last 2 weeks patient denies having increasing pain in the lower back and also patient describes in the abdominal wall. She finds the abdominal wall to be very sensitive to touch. She was having a bowel movement every day up to 2 weeks ago. Now she is not eating. Because of pain and has constipation. No nausea vomiting. She also feeling some numbness in the legs. Also having some more trouble walking. Having increasing trouble rolling about in bed. Back pain is much worse with movements. She's been to a local ER apparently to 3 times-4 lower abdominal pain. She does seem that the abdominal wall is sensitive to touch. She is also describing shooting pain from the lower back up the spine. She is quite a bit of discomfort. Because of concerns for side effects including constipation and has been avoiding pain medications. Except for marijuana May 28: Patient having significant pain in the lower back, hyperesthesia in the lower abdominal wall and also having erratic or pain down the legs. Spoke to Dr. Hoskins from orthopedics. He is consulting neurology and an MRA of the spine was ordered. Latter was done, essentially nondiagnostic May 29: Continues to have significant pain. Neurology had ordered myelogram. Last night patient to express suicidal ideation. I ordered a sitter. Psychiatry consultation. The added Cymbalta and trazodone. Sitter discontinued. Discussed with patient. Further testing computed tomography scan ordered by orthopedic. May 30: Patient continues to have significant pain. Both of the abdomen. Pain with superficial touching also. Also pain down the left leg. Eating small amounts. Discussed with Dr. Campuzano. And also with Dr. Knapp from general surgery. Discussed with patient. Acceptable to transferred to [facility]. Spoke to the accepting team there. Patient accepted. Currently no beds available. We do not have GI service going forward. May 31: Patient remains in significant pain. Not eating much. Spoke to [facility] transfer team. Awaiting bed opening. June 01: Continues to have significant pain. Both in the abdomen. And severity down the leg. Spoke to the dietitian and the patient. Order fruit. Pending transfer to [facility]. Active Medications Acetaminophen (Acetaminophen Tab 325 Mg Tab) 650 mg PO Q6HR [facility] Last Admin: 06/01/21 22:01 Dose: Not Given Documented by: Alprazolam (Alprazolam 0.25 Mg Tab) 0.25 mg PO Q6HR PRN PRN Reason: Anxiety Last Admin: 06/01/21 19:20 Dose: 0.25 mg Documented by: Baclofen (Baclofen 10 Mg Tab) 5 mg PO QID [facility] Last Admin: 06/01/21 21:12 Dose: 5 mg Documented by: Calcium Carbonate/Glycine (Calcium Carbonate 500 Mg Chewable) 1,000 mg PO Q4HR PRN PRN Reason: Dyspepsia Last Admin: 05/31/21 07:18 Dose: 1,000 mg Documented by: Enoxaparin Sodium (Enoxaparin 40 Mg/0.4 Ml Syringe) 40 mg SQ DAILY [facility] Last Admin: 06/01/21 08:58 Dose: Not Given Documented by: Famotidine (Famotidine 20 Mg Tab) 20 mg PO BID [facility] Last Admin: 06/01/21 21:13 Dose: 20 mg Documented by: Gabapentin (Gabapentin 300 Mg Cap) 300 mg PO BID [facility] Last Admin: 06/01/21 21:13 Dose: 300 mg Documented by: Hydromorphone HCl (Hydromorphone 1 Mg/Ml 1 Ml Syringe) 0.5 mg IVP Q4HR PRN PRN Reason: SEVERE Pain Last Admin: 06/01/21 21:11 Dose: 0.5 mg Documented by: Sodium Chloride (Saline 0.9%) 1,000 mls @ 125 mls/hr IV .Q8H [facility] Last Admin: 06/01/21 19:21 Dose: 125 mls/hr Documented by: Lactulose (Lactulose 20 Gm/30 Ml Cup) 20 gm PO DAILY PRN PRN Reason: Constipation Melatonin (Melatonin 3 Mg Tablet) 3 mg PO HS PRN PRN Reason: Insomnia Naloxone HCl (Naloxone 0.4 Mg/Ml 1 Ml Vial) 0.2 mg IV Q2M PRN PRN Reason: Opioid Reversal Naproxen (Naproxen 250 Mg Tab) 250 mg PO TID [facility] Last Admin: 06/01/21 21:13 Dose: 250 mg Documented by: Nicotine (Nicotine 7mg/24hr Patch) 1 patch TRANSDERM DAILY [facility] Last Admin: 06/01/21 08:58 Dose: Not Given Documented by: Ondansetron HCl (Ondansetron 4 Mg/2 Ml Vial) 4 mg IVP Q6HR PRN PRN Reason: Nausea And Vomiting Last Admin: 05/31/21 07:18 Dose: 4 mg Documented by: Prednisone (Prednisone 20 Mg Tab) 20 mg PO BID [facility] Last Admin: 06/01/21 21:13 Dose: 20 mg Documented by: Trazodone HCl (Trazodone Hcl 50 Mg Tab) 50 mg PO HS [facility] Last Admin: 06/01/21 21:13 Dose: 50 mg Documented by: Past medical history to include: Pancreatitis, chronic back pain Social history: Lives with her boyfriend. Patient been smoking for about 35 years. Not significantly cutback. Does use marijuana for pain. Family history: Reviewed, noncontributory to presentation Physical examination: VITAL SIGNS: 98, 64, 18, 171/77 with pain, 98% room air GENERAL: laying in bed, awake, uncomfortable. EYES: Pupils equal. Conjunctiva normal. HEENT: External appearance of nose and ears normal, oral cavity grossly normal. NECK: JVD not raised; masses not palpable. HEART: First and second heart sounds are normal; no edema. LUNGS: Respiratory rate normal; clear to auscultation. ABDOMEN: Soft, tenderness. No guarding rigidity., liver spleen not palpable, no masses palpable. PSYCH: [Alert and oriented x3; mood and affect anxious. MUSCULOSKELETAL:No Clubbing/cyanosis;muscles-grossly intact. Bilateral plantars and knee reflexes are equivocal. Difficult leg raising up to 30 on both the sides. Surgical scar on the back, with evidence of scoliosis NEUROLOGICAL: Hyperaesthesia, lower quadrants abdomen INVESTIGATIONS, reviewed in the clinical context: June 01: White count 4.8 hemoglobin 12.8 sodium 133 potassium 4.6 creatinine 0.5 Vitamin B12, folate: Normal Cervical spine/thoracic/lumbar spine MRI: Nondiagnostic. Severe disc space narrowing at L4-L5 May 28: White count 5.5, hemoglobin 14.3 platelets 226 sodium 132 potassium 4 creatinine 0.69 White count 7.2 hemoglobin 16.4 platelets 254 sodium 132 potassium 3.8 BUN 12 crit and 0.71 calcium 10.4 UA ketone 3+ blood small Coronavirus [PCR]: Not detected Computed tomography scan abdomen and pelvis with contrast: Fluid-filled loops of small bowel present. Lumbar spine x-ray film personally reviewed by me: Shows prominent bowel, significant scoliotic findings. Osteopenia. Disc space narrowing. Assessment and plan: -Severe spinal arthritis. Patient L4-L5. Some radicular pain. Does not explain patient's abdominal findings as a whole. Orthopedics on the case. -Acute abdominal pain. Significant superficial pain also present. Discussed with Dr. Campuzano from GI. Discussed with Dr. Knapp from general surgery. There was some question about SMA syndrome. Does not appear to be so. -Moderate protein calorie malnutrition with a BMI of 15.9 from decreased oral intake Dietitian. ensure -Ileus or small bowel from pain and decreased activity. Metamucil. 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 Continue current treatment plan. Pending transfer to [facility]. Discussed with the patient.
[2021-06-02] MEDS: HYDROmorphone 1 MG/ML 1 ML SYRINGE IVP PRN ×5 (02:41→20:15)
[2021-06-02] MEDS: SODIUM CHLORIDE 0.9% 1,000 ML IV SCH ×3 (02:47→21:24)
[2021-06-02] MEDS: ACETAMINOPHEN TAB 325 MG TAB PO SCH ×4 (05:30→23:07)
[2021-06-02] MEDS: NICOTINE 7MG/24HR PATCH TRANSDERM SCH (07:34)
[2021-06-02] MEDS: ENOXAPARIN 40 MG/0.4 ML SYRINGE SQ SCH (07:34)
[2021-06-02] MEDS: predniSONE 20 MG TAB PO SCH ×2 (07:35→20:15)
[2021-06-02] MEDS: BACLOFEN 10 MG TAB PO SCH ×4 (07:35→21:21)
[2021-06-02] MEDS: NAPROXEN 250 MG TAB PO SCH ×3 (07:35→21:23)
[2021-06-02] MEDS: FAMOTIDINE 20 MG TAB PO SCH ×2 (07:35→20:15)
[2021-06-02] MEDS: GABAPENTIN 300 MG CAP PO SCH ×2 (07:36→20:15)
[2021-06-02] MEDS: ALPRAZolam 0.25 MG TAB PO PRN ×2 (08:00→20:15)
--- NOTE | 2021-06-02 13:14 | P.PN ---
<Bessy Cervantes - Last Filed: 06/02/21 13:10> Subjective Progress Note Date: 06/02/21 CHIEF COMPLAINT: Abdominal pain HISTORY OF PRESENT ILLNESS: Patient is seen and examined. No acute changes through the night. Patient is waiting a bed at [facility]. Still complains of abdominal pain pain to her back and radiating down her legs. PHYSICAL EXAM: VITAL SIGNS: Reviewed. GENERAL: Well-developed in no acute distress. HEENT: No sclera icterus. Extraocular movements grossly intact. Moist buccal mucosa. Head is atraumatic, normocephalic. ABDOMEN: Soft. Nondistended. Patient will not allow examination. NEUROLOGIC: Alert and oriented. Cranial nerves II through XII grossly intact. ASSESSMENT: 1. Abdominal pain with back pain radiating down the left leg. Etiology remains unclear. PLAN: 1. Continue symptomatic and supportive care 2. Continued diet as tolerated 3. Encourage ambulation 4. Agree with plans to transfer to tertiary center The impression and plan of care has been dictated as directed. I performed a history and examination of this patient, discussed the same with the dictator. I agree with the dictator's note ,documented as a scribe. Any additional findings or plans will be noted. Objective - Vital Signs Vital signs: Vital Signs Temp 97.7 F 06/02/21 07:45 Pulse 71 06/02/21 08:00 Resp 18 06/02/21 08:00 BP 179/85 06/02/21 07:45 Pulse Ox 99 06/02/21 07:45 Intake & Output 06/01/21 06/02/21 06/02/21 18:59 06:59 18:59 Weight 40.823 kg Other: Voiding Method Toilet # Voids 2 4 - Labs CBC & Chem 7: 06/01/21 06:01 06/01/21 06:01 <Clay Julio - Last Filed: 06/02/21 16:39> Subjective As above. Patient having back spasms today. Says it's difficult to ambulate because of the back spasms and back pain radiating down to the groin. Etiology for patient's symptoms remain unclear. Awaiting transfer for tertiary care input. Objective - Vital Signs Vital signs: Vital Signs Temp 98.3 F 06/02/21 14:00 Pulse 61 06/02/21 14:00 Resp 18 06/02/21 14:00 BP 194/88 06/02/21 14:00 Pulse Ox 99 06/02/21 14:00 Intake & Output 06/01/21 06/02/21 06/02/21 18:59 06:59 18:59 Weight 40.823 kg Other: Voiding Method Toilet # Voids 2 4 5 - Labs CBC & Chem 7: 06/01/21 06:01 06/01/21 06:01 Assessment and Plan (1) Abdominal pain Current Visit: Yes Status: Acute Code(s): R10.9 - UNSPECIFIED ABDOMINAL PAIN SNOMED Code(s): 82800855
[2021-06-02] MEDS: traZODone HCL 50 MG TAB PO SCH (20:15)
--- NOTE | 2021-06-02 21:50 | P.PN ---
Progress Note - Text Progress Note Date: 06/02/21 Chief Complaint: Back and abdominal pain This is a very pleasant 55-year-old patient of Dr. Lopez. Patient at the age of 12 for severe scoliosis had surgery done in [place] and also placed what she described from her thoracic to lumbar spine. Over the last 2 years she's had pain on and off. And has seen different physicians. For her back. Through her family doctor. She has been prescribed pain medications. For last 2 weeks patient denies having increasing pain in the lower back and also patient describes in the abdominal wall. She finds the abdominal wall to be very sensitive to touch. She was having a bowel movement every day up to 2 weeks ago. Now she is not eating. Because of pain and has constipation. No nausea vomiting. She also feeling some numbness in the legs. Also having some more trouble walking. Having increasing trouble rolling about in bed. Back pain is much worse with movements. She's been to a local ER apparently to 3 times-4 lower abdominal pain. She does seem that the abdominal wall is sensitive to touch. She is also describing shooting pain from the lower back up the spine. She is quite a bit of discomfort. Because of concerns for side effects including constipation and has been avoiding pain medications. Except for marijuana May 28: Patient having significant pain in the lower back, hyperesthesia in the lower abdominal wall and also having erratic or pain down the legs. Spoke to Dr. Hoskins from orthopedics. He is consulting neurology and an MRA of the spine was ordered. Latter was done, essentially nondiagnostic May 29: Continues to have significant pain. Neurology had ordered myelogram. Last night patient to express suicidal ideation. I ordered a sitter. Psychiatry consultation. The added Cymbalta and trazodone. Sitter discontinued. Discussed with patient. Further testing computed tomography scan ordered by orthopedic. May 30: Patient continues to have significant pain. Both of the abdomen. Pain with superficial touching also. Also pain down the left leg. Eating small amounts. Discussed with Dr. Campuzano. And also with Dr. Knapp from general surgery. Discussed with patient. Acceptable to transferred to [facility]. Spoke to the accepting team there. Patient accepted. Currently no beds available. We do not have GI service going forward. May 31: Patient remains in significant pain. Not eating much. Spoke to [facility] transfer team. Awaiting bed opening. June 01: Continues to have significant pain. Both in the abdomen. And severity down the leg. Spoke to the dietitian and the patient. Order fruit. Pending transfer to [facility]. June 02: Eating or 25%. Symptoms persist. Awaiting a bed at outside hospital. Discussed with patient. Active Medications Acetaminophen (Acetaminophen Tab 325 Mg Tab) 650 mg PO Q6HR [facility] Last Admin: 06/02/21 18:11 Dose: Not Given Documented by: Alprazolam (Alprazolam 0.25 Mg Tab) 0.25 mg PO Q6HR PRN PRN Reason: Anxiety Last Admin: 06/02/21 20:15 Dose: 0.25 mg Documented by: Baclofen (Baclofen 10 Mg Tab) 5 mg PO QID [facility] Last Admin: 06/02/21 21:21 Dose: 5 mg Documented by: Calcium Carbonate/Glycine (Calcium Carbonate 500 Mg Chewable) 1,000 mg PO Q4HR PRN PRN Reason: Dyspepsia Last Admin: 05/31/21 07:18 Dose: 1,000 mg Documented by: Enoxaparin Sodium (Enoxaparin 40 Mg/0.4 Ml Syringe) 40 mg SQ DAILY [facility] Last Admin: 06/02/21 07:34 Dose: Not Given Documented by: Famotidine (Famotidine 20 Mg Tab) 20 mg PO BID [facility] Last Admin: 06/02/21 20:15 Dose: 20 mg Documented by: Gabapentin (Gabapentin 300 Mg Cap) 300 mg PO BID [facility] Last Admin: 06/02/21 20:15 Dose: 300 mg Documented by: Hydromorphone HCl (Hydromorphone 1 Mg/Ml 1 Ml Syringe) 0.5 mg IVP Q4HR PRN PRN Reason: SEVERE Pain Last Admin: 06/02/21 20:15 Dose: 0.5 mg Documented by: Sodium Chloride (Saline 0.9%) 1,000 mls @ 125 mls/hr IV .Q8H [facility] Last Admin: 06/02/21 21:24 Dose: 125 mls/hr Documented by: Lactulose (Lactulose 20 Gm/30 Ml Cup) 20 gm PO DAILY PRN PRN Reason: Constipation Last Admin: 06/02/21 14:46 Dose: 20 gm Documented by: Melatonin (Melatonin 3 Mg Tablet) 3 mg PO HS PRN PRN Reason: Insomnia Naloxone HCl (Naloxone 0.4 Mg/Ml 1 Ml Vial) 0.2 mg IV Q2M PRN PRN Reason: Opioid Reversal Naproxen (Naproxen 250 Mg Tab) 250 mg PO TID [facility] Last Admin: 06/02/21 21:23 Dose: 250 mg Documented by: Nicotine (Nicotine 7mg/24hr Patch) 1 patch TRANSDERM DAILY [facility] Last Admin: 06/02/21 07:34 Dose: Not Given Documented by: Ondansetron HCl (Ondansetron 4 Mg/2 Ml Vial) 4 mg IVP Q6HR PRN PRN Reason: Nausea And Vomiting Last Admin: 05/31/21 07:18 Dose: 4 mg Documented by: Prednisone (Prednisone 20 Mg Tab) 20 mg PO BID [facility] Last Admin: 06/02/21 20:15 Dose: 20 mg Documented by: Trazodone HCl (Trazodone Hcl 50 Mg Tab) 50 mg PO HS [facility] Last Admin: 06/02/21 20:15 Dose: 50 mg Documented by: Past medical history to include: Pancreatitis, chronic back pain Social history: Lives with her boyfriend. Patient been smoking for about 35 years. Not significantly cutback. Does use marijuana for pain. Family history: Reviewed, noncontributory to presentation Physical examination: VITAL SIGNS: 98.3, 61, 18, 179 with 85, 98% room air GENERAL: Up in bed, awake, uncomfortable. EYES: Pupils equal. Conjunctiva normal. HEENT: External appearance of nose and ears normal, oral cavity grossly normal. NECK: JVD not raised; masses not palpable. HEART: First and second heart sounds are normal; no edema. LUNGS: Respiratory rate normal; clear to auscultation. ABDOMEN: Soft, tenderness. No guarding rigidity., liver spleen not palpable, no masses palpable. PSYCH: [Alert and oriented x3; mood and affect anxious. MUSCULOSKELETAL:No Clubbing/cyanosis;muscles-grossly intact. Bilateral plantars and knee reflexes are equivocal. Difficult leg raising up to 30 on both the sides. Surgical scar on the back, with evidence of scoliosis NEUROLOGICAL: Hyperaesthesia, lower quadrants abdomen INVESTIGATIONS, reviewed in the clinical context: June 01: White count 4.8 hemoglobin 12.8 sodium 133 potassium 4.6 creatinine 0.5 Vitamin B12, folate: Normal Cervical spine/thoracic/lumbar spine MRI: Nondiagnostic. Severe disc space narrowing at L4-L5 May 28: White count 5.5, hemoglobin 14.3 platelets 226 sodium 132 potassium 4 creatinine 0.69 White count 7.2 hemoglobin 16.4 platelets 254 sodium 132 potassium 3.8 BUN 12 crit and 0.71 calcium 10.4 UA ketone 3+ blood small Coronavirus [PCR]: Not detected Computed tomography scan abdomen and pelvis with contrast: Fluid-filled loops of small bowel present. Lumbar spine x-ray film personally reviewed by me: Shows prominent bowel, significant scoliotic findings. Osteopenia. Disc space narrowing. Assessment and plan: -Severe spinal arthritis. Patient L4-L5. Some radicular pain. Does not explain patient's abdominal findings as a whole. Orthopedics on the case. -Acute abdominal pain. Significant superficial pain also present. Discussed with Dr. Campuzano from GI. Discussed with Dr. Knapp from general surgery. There was some question about SMA syndrome. Does not appear to be so. -Moderate protein calorie malnutrition with a BMI of 15.9 from decreased oral intake Dietitian. ensure -Ileus or small bowel from pain and decreased activity. Metamucil. 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 Continue current medication treatment plan. Discussed with patient.
[2021-06-03] MEDS: HYDROmorphone 1 MG/ML 1 ML SYRINGE IVP PRN ×3 (00:58→12:28)
[2021-06-03 02:38] VITALS: RESP 18
[2021-06-03] MEDS: SODIUM CHLORIDE 0.9% 1,000 ML IV SCH ×2 (05:21→12:18)
[2021-06-03] MEDS: ACETAMINOPHEN TAB 325 MG TAB PO SCH ×2 (05:22→12:18)
[2021-06-03] MEDS: ENOXAPARIN 40 MG/0.4 ML SYRINGE SQ SCH (07:21)
[2021-06-03] MEDS: NAPROXEN 250 MG TAB PO SCH (07:21)
[2021-06-03] MEDS: predniSONE 20 MG TAB PO SCH (07:22)
[2021-06-03] MEDS: BACLOFEN 10 MG TAB PO SCH ×2 (07:22→13:30)
[2021-06-03] MEDS: FAMOTIDINE 20 MG TAB PO SCH (07:22)
[2021-06-03] MEDS: GABAPENTIN 300 MG CAP PO SCH (07:22)
[2021-06-03] MEDS: ALPRAZolam 0.25 MG TAB PO PRN ×2 (07:30→15:11)
[2021-06-03] MEDS ORDERED: polyethylene glycoL 3350 17 GM POWD.PACK PO SCH (09:30)
[2021-06-03] MEDS: NICOTINE 7MG/24HR PATCH TRANSDERM SCH (10:01)
--- NOTE | 2021-06-03 11:12 | P.PN ---
<Bessy Cervantes - Last Filed: 06/03/21 11:10> Subjective Progress Note Date: 06/03/21 CHIEF COMPLAINT: Abdominal pain HISTORY OF PRESENT ILLNESS: Patient is seen and examined. No acute changes through the night. Her complaints of back spasms. States she cannot sit up for long periods of time because pain radiates down her back and into her leg. No bowel movement reported. Denies any nausea or vomiting. Tolerating her diet. Patient is waiting a bed at [facility]. PHYSICAL EXAM: VITAL SIGNS: Reviewed. GENERAL: Well-developed in no acute distress. HEENT: No sclera icterus. Extraocular movements grossly intact. Moist buccal mucosa. Head is atraumatic, normocephalic. ABDOMEN: Soft. Nondistended. Tender to palpation. NEUROLOGIC: Alert and oriented. Cranial nerves II through XII grossly intact. ASSESSMENT: 1. Abdominal pain with back pain radiating down the left leg. Etiology remains unclear. PLAN: 1. Continue symptomatic and supportive care 2. Continued diet as tolerated 3. Encourage ambulation 4. MiraLAX daily 5. Agree with plans to transfer to tertiary center The impression and plan of care has been dictated as directed. I performed a history and examination of this patient, discussed the same with the dictator. I agree with the dictator's note ,documented as a scribe. Any additional findings or plans will be noted. Objective - Vital Signs Vital signs: Vital Signs Temp 97.7 F 06/03/21 08:00 Pulse 63 06/03/21 08:00 Resp 18 06/03/21 08:00 BP 189/77 06/03/21 08:00 Pulse Ox 99 06/03/21 08:00 Intake & Output 06/02/21 06/03/21 06/03/21 18:59 06:59 18:59 Other: Voiding Method Toilet # Voids 4 3 - Labs CBC & Chem 7: 06/01/21 06:01 06/01/21 06:01 <Clay Julio - Last Filed: 06/03/21 12:29> Subjective As above. More back pain today. Tolerating diet. No vomiting. We'll sign off. Please call if patient's abdominal pain recurs or tertiary care transfer is canceled. Objective - Vital Signs Vital signs: Vital Signs Temp 97.7 F 06/03/21 08:00 Pulse 71 06/03/21 08:00 Resp 18 06/03/21 08:00 BP 189/77 06/03/21 08:00 Pulse Ox 99 06/03/21 08:00 Intake & Output 06/02/21 06/03/21 06/03/21 18:59 06:59 18:59 Intake Total 59 Balance 59 Intake: Oral 59 Other: Voiding Method Toilet Toilet # Voids 4 3 - Labs CBC & Chem 7: 06/01/21 06:01 06/01/21 06:01 Assessment and Plan (1) Abdominal pain Current Visit: Yes Status: Acute Code(s): R10.9 - UNSPECIFIED ABDOMINAL PAIN SNOMED Code(s): 91047521
[2021-06-03 14:37] VITALS: BP 167/89
[2021-06-03 14:38] VITALS: PULSE 78; TEMP 97.6
--- NOTE | 2021-06-03 21:39 | P.DS ---
Providers Date of admission: 05/30/21 11:04 Expected date of discharge: 06/03/21 Attending physician: Stone Austin Consults: 05/27/21 13:16 Consult Physician Routine Consulting Provider: Sarah Schaffer Consult Reason/Comments: Intractable lower abdominal pain Do you want consulting provider notified?: Yes 05/27/21 15:28 Consult Physician Routine Consulting Provider: Hamilton Sheldon Consult Reason/Comments: back pain Do you want consulting provider notified?: Yes 05/28/21 11:09 Consult Physician Routine Consulting Provider: Bryce Jenkins Consult Reason/Comments: Neurology consult for lower trunk numbness and pain Do you want consulting provider notified?: Yes 05/28/21 22:48 Consult Physician Routine Consulting Provider: Eldon Mcgregor Consult Reason/Comments: suicidal ideations Do you want consulting provider notified?: Already Contacted 05/30/21 08:19 Consult Physician Routine Consulting Provider: Clay Julio Consult Reason/Comments: abdominal pain Do you want consulting provider notified?: Yes Primary care physician: LONNIE Perez Hospital Course: Chief Complaint: Back and abdominal pain This is a very pleasant 55-year-old patient of Dr. Lopez. Patient at the age of 12 for severe scoliosis had surgery done in [place] and also placed what she described from her thoracic to lumbar spine. Over the last 2 years she's had pain on and off. And has seen different physicians. For her back. Through her family doctor. She has been prescribed pain medications. For last 2 weeks patient denies having increasing pain in the lower back and also patient describes in the abdominal wall. She finds the abdominal wall to be very sensitive to touch. She was having a bowel movement every day up to 2 weeks ago. Now she is not eating. Because of pain and has constipation. No nausea vomiting. She also feeling some numbness in the legs. Also having some more trouble walking. Having increasing trouble rolling about in bed. Back pain is much worse with movements. She's been to a local ER apparently to 3 times-4 lower abdominal pain. She does seem that the abdominal wall is sensitive to touch. She is also describing shooting pain from the lower back up the spine. She is quite a bit of discomfort. Because of concerns for side effects including constipation and has been avoiding pain medications. Except for marijuana February 3: Patient having significant pain in the lower back, hyperesthesia in the lower abdominal wall and also having erratic or pain down the legs. Spoke to Dr. Hoskins from orthopedics. He is consulting neurology and an MRA of the spine was ordered. Latter was done, essentially nondiagnostic May 29: Continues to have significant pain. Neurology had ordered myelogram. Last night patient to express suicidal ideation. I ordered a sitter. Psychiatry consultation. The added Cymbalta and trazodone. Sitter discontinued. Discussed with patient. Further testing computed tomography scan ordered by orthopedic. May 30: Patient continues to have significant pain. Both of the abdomen. Pain with superficial touching also. Also pain down the left leg. Eating small amounts. Discussed with Dr. Campuzano. And also with Dr. Knapp from general surgery. Discussed with patient. Acceptable to transferred to [facility]. Spoke to the accepting team there. Patient accepted. Currently no beds available. We do not have GI service going forward. May 31: Patient remains in significant pain. Not eating much. Spoke to [facility] transfer team. Awaiting bed opening. June 01: Continues to have significant pain. Both in the abdomen. And severity down the leg. Spoke to the dietitian and the patient. Order fruit. Pending transfer to [facility]. June 02: Eating or 25%. Symptoms persist. Awaiting a bed at outside hospital. Discussed with patient. June 03: Clinical picture unchanged. Fluctuating symptoms. Abdominal pain and radicular pain present. Spoke again to [facility] accepting physician from internal medicine. Patient is accepted. For transfer. Past medical history to include: Pancreatitis, chronic back pain Social history: Lives with her boyfriend. Patient been smoking for about 35 years. Not significantly cutback. Does use marijuana for pain. Family history: Reviewed, noncontributory to presentation Physical examination: VITAL SIGNS: 97.6, 78, 18, 1 67 x 89, 99% room air GENERAL: Up in bed, awake, uncomfortable. EYES: Pupils equal. Conjunctiva normal. HEENT: External appearance of nose and ears normal, oral cavity grossly normal. NECK: JVD not raised; masses not palpable. HEART: First and second heart sounds are normal; no edema. LUNGS: Respiratory rate normal; clear to auscultation. ABDOMEN: Soft, tenderness. No guarding rigidity., liver spleen not palpable, no masses palpable. PSYCH: [Alert and oriented x3; mood and affect anxious. MUSCULOSKELETAL:No Clubbing/cyanosis;muscles-grossly intact. Bilateral plantars and knee reflexes are equivocal. Difficult leg raising up to 30 on both the sides. Surgical scar on the back, with evidence of scoliosis NEUROLOGICAL: Hyperaesthesia, lower quadrants abdomen INVESTIGATIONS, reviewed in the clinical context: June 01: White count 4.8 hemoglobin 12.8 sodium 133 potassium 4.6 creatinine 0.5 Vitamin B12, folate: Normal Cervical spine/thoracic/lumbar spine MRI: Nondiagnostic. Severe disc space narrowing at L4-L5 May 28: White count 5.5, hemoglobin 14.3 platelets 226 sodium 132 potassium 4 creatinine 0.69 White count 7.2 hemoglobin 16.4 platelets 254 sodium 132 potassium 3.8 BUN 12 crit and 0.71 calcium 10.4 UA ketone 3+ blood small Coronavirus [PCR]: Not detected Computed tomography scan abdomen and pelvis with contrast: Fluid-filled loops of small bowel present. Lumbar spine x-ray film personally reviewed by me: Shows prominent bowel, significant scoliotic findings. Osteopenia. Disc space narrowing. Assessment and plan: -Severe spinal arthritis. Patient L4-L5. Some radicular pain. Does not explain patient's abdominal findings as a whole. Orthopedics on the case. -Acute abdominal pain. Significant superficial pain also present. Discussed with Dr. Campuzano from GI. Discussed with Dr. Knapp from general surgery. There was some question about SMA syndrome. Does not appear to be so. -Moderate protein calorie malnutrition with a BMI of 15.9 from decreased oral intake Dietitian. ensure -Ileus or small bowel from pain and decreased activity. Metamucil. 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 Plan - Discharge Summary Discharge Rx Participant: No New Discharge Prescriptions: No Action Rosuvastatin [Crestor] 20 mg PO DAILY Discharge Medication List Rosuvastatin [Crestor] 20 mg PO DAILY 05/27/21 [History] Follow up Appointment(s)/Referral(s): Zhanna Medel NPC [Primary Care Provider] - 1-2 Days Patient Instructions/Handouts: How to Stop Smoking (DC)
== END 2021-06-03 15:49 | disposition short-term general hospital (02) | DRG 552 ==
LOC: EC 10:14 → 6NMEDSUR 13:16 → OBSVTOIN 05-30 11:04
PROVIDERS: ADMIT Hospitalist; ATTEND Hospitalist
DX: M47.26 Other spondylosis with radiculopathy, lumbar region (principal); E87.1 Hypo-osmolality and hyponatremia; K56.7 Ileus, unspecified; R45.851 Suicidal ideations; E44.0 Moderate protein-calorie malnutrition; Z68.1 Body mass index [BMI] 19.9 or less, adult; M51.16 Intervertebral disc disorders with radiculopathy, lumbar region; E83.119 Hemochromatosis, unspecified; E83.52 Hypercalcemia; E86.0 Dehydration; F12.10 Cannabis abuse, uncomplicated; F17.210 Nicotine dependence, cigarettes, uncomplicated; F43.23 Adjustment disorder with mixed anxiety and depressed mood; G47.00 Insomnia, unspecified; G89.29 Other chronic pain; M51.34 Other intervertebral disc degeneration, thoracic region; K59.00 Constipation, unspecified; M41.9 Scoliosis, unspecified; M47.812 Spondylosis without myelopathy or radiculopathy, cervical region; M48.07 Spinal stenosis, lumbosacral region; M48.061 Spinal stenosis, lumbar region without neurogenic claudication; Z20.822 Contact with and (suspected) exposure to COVID-19; Z79.899 Other long term (current) drug therapy; Z90.49 Acquired absence of other specified parts of digestive tract; Z98.1 Arthrodesis status; Z98.890 Other specified postprocedural states; Z71.3 Dietary counseling and surveillance; Z56.0 Unemployment, unspecified; Z88.6 Allergy status to analgesic agent; Z88.0 Allergy status to penicillin
CPT/HCPCS: 36415; 62305; 72070; 72110; 72129; 72131; 72132; 72141; 72146; 72148; 74177; 80048; 80053; 81001; 82150; 82607; 82746; 83036; 83605; 83690; 85025; 85610; 85730; 87635; 96361; 96374; 96375; 99285

== ENCOUNTER → 2021-08-12 | Outpatient (CLI) | payer OTHER ==
--- NOTE | 2021-08-13 00:36 | MR ---
EXAMINATION TYPE: MR lumbar spine wo con DATE OF EXAM: 08/12/2021 COMPARISON: 05/28/2021 HISTORY: LBP, RLE radiculopathy, scoliosis, hx surgery. Multiplanar multiecho imaging of the lumbar spine without contrast. There is a mild lumbar levoscoliosis. There is metal artifact from posterior surgery at L3-4 level. T here are spinal rods that obscure the detail. There is degenerative disc space narrowing at L4-5 and L5-S1. There are small posterior disc herniations at L4-5 and L5-S1. The sacroiliac joints are intact . There is no compression fracture. Spinal canal is obscured by metal artifact at the L3 level. No ob vious spinal stenosis. There is no lumbar paraspinal mass. Sacroiliac joints are intact. IMPRESSION: There is scoliosis surgery. Degenerative disc narrowing at L4-5 and L5-S1 appears stable compared to old exam. No evidence of spinal stenosis. No fracture seen.
== END | disposition home or self-care (01) ==
LOC: RADMRIMAIN 19:23
PROVIDERS: ATTEND Nurse Practitioner Family
DX: M51.17 Intervertebral disc disorders with radiculopathy, lumbosacral region (principal)
CPT/HCPCS: 72148